=== PATIENT | male | born 1985 | race African-American/Black ===

== ENCOUNTER 2020-09-01 03:33 | Emergency (ER) | payer OTHER ==
[2020-09-01 03:51] VITALS: RESP 18
--- NOTE | 2020-09-01 04:21 | ED ---
URI HPI - General Chief Complaint: Upper Respiratory Infection Stated Complaint: pt states he feels "sickly" Time Seen by Provider: 09/01/20 03:43 Source: patient, RN notes reviewed, old records reviewed Mode of arrival: ambulatory Limitations: no limitations - History of Present Illness Initial Comments: This is a 35-year-old male DF for evaluation. Patient feels short of breath weakness not feeling well. Occasional cough or congestion, and is overall not feeling well. Patient does admit to homelessness feels he may have coronavirus. MD Complaint: cough, sore throat -: days(s) Severity: mild Severity scale (1-10): 2 Quality: dull Consistency: constant Improves With: nothing Worsens With: nothing Context: other (none) Associated Symptoms: denies other symptoms Treatments Prior to Arrival: none - Related Data Previous Rx's Medication Instructions Recorded Albuterol Sulfate [Proair Hfa] 1 - 2 puff INHALATION Q4HR PRN #1 09/28/15 inhaler methylPREDNISolone [Medrol Dose 4 mg PO DIRECTED #1 pack 09/28/15 Pack] Allergies Allergy/AdvReac Type Severity Reaction Status Date / Time No Known Allergies Allergy Verified 09/03/20 00:59 Review of Systems ROS Statement: Those systems with pertinent positive or pertinent negative responses have been documented in the HPI. ROS Other: All systems not noted in ROS Statement are negative. Past Medical History Past Medical History: Asthma History of Any Multi-Drug Resistant Organisms: None Reported Past Surgical History: No Surgical Hx Reported Past Psychological History: Schizophrenia Smoking Status: Current every day smoker, Never smoker Past Alcohol Use History: Daily Past Drug Use History: Marijuana General Exam Limitations: no limitations General appearance: alert, in no apparent distress Head exam: Present: atraumatic, normocephalic, normal inspection Eye exam: Present: normal appearance, PERRL, EOMI. Absent: scleral icterus, conjunctival injection, periorbital swelling ENT exam: Present: normal exam, mucous membranes moist Neck exam: Present: normal inspection. Absent: tenderness, meningismus, lymphadenopathy Respiratory exam: Present: normal lung sounds bilaterally. Absent: respiratory distress, wheezes, rales, rhonchi, stridor Cardiovascular Exam: Present: regular rate, normal rhythm, normal heart sounds. Absent: systolic murmur, diastolic murmur, rubs, gallop, clicks GI/Abdominal exam: Present: soft, normal bowel sounds. Absent: distended, tenderness, guarding, rebound, rigid Extremities exam: Present: normal inspection, full ROM, normal capillary refill. Absent: tenderness, pedal edema, joint swelling, calf tenderness Back exam: Present: normal inspection Neurological exam: Present: alert, oriented X3, CN II-XII intact Psychiatric exam: Present: normal affect, normal mood Skin exam: Present: warm, dry, intact, normal color. Absent: rash Course Vital Signs 09/01/20 09/01/20 09/01/20 03:34 03:46 06:34 Temperature 99 F 98.5 F Pulse Rate 79 76 Respiratory 24 18 18 Rate Blood Pressure 143/85 140/82 O2 Sat by Pulse 99 98 Oximetry - Reevaluation(s) Reevaluation #1: Medical record is reviewed Patient feeling better here in the ER Patient explained results, questions here answered Patient feels good for discharge home does admit to needing a place to sleep secondary to homelessness Medical Decision Making - Medical Decision Making 35 male DF for evaluation of possible coronavirus. X-ray coronavirus testing are negative patient can be discharged home - Lab Data Lab Results 09/01/20 Range/Units 04:28 Coronavirus (PCR) Not Detected (Not Detectd) - Radiology Data Radiology results: report reviewed (Chest x-rays negative for acute disease), image reviewed Disposition Clinical Impression: Acute upper respiratory infection Disposition: HOME SELF-CARE Condition: Good Instructions (If sedation given, give patient instructions): Upper Respiratory Infection (ED) Is patient prescribed a controlled substance at d/c from ED?: No Referrals: None,Stated [Primary Care Provider] - 1-2 days
--- NOTE | 2020-09-01 05:13 | XR ---
EXAM: XR Chest, 1 View CLINICAL HISTORY: ITS.REASON XR Reason: cough TECHNIQUE: Frontal view of the chest. COMPARISON: 09/28/2015 FINDINGS: Lungs: No consolidation or mass. Pleural space: No acute findings Heart: No cardiomegaly. Bones/joints: No acute findings. IMPRESSION: No acute cardiopulmonary process.
[2020-09-01 06:36] VITALS: BP 140/82; PULSE 76; TEMP 98.5
== END 2020-09-01 06:34 | disposition home or self-care (01) ==
LOC: EC 03:33
DX: J06.9 Acute upper respiratory infection, unspecified (principal); J45.909 Unspecified asthma, uncomplicated; F17.200 Nicotine dependence, unspecified, uncomplicated; F12.90 Cannabis use, unspecified, uncomplicated; Z20.822 Contact with and (suspected) exposure to COVID-19
CPT/HCPCS: 71045; 87635; 99284

== ENCOUNTER 2020-09-03 00:48 | Emergency (ER) | payer OTHER ==
--- NOTE | 2020-09-03 01:24 | XR ---
EXAM: XR Left Knee, 3 Views CLINICAL HISTORY: ITS.REASON XR Reason: pain TECHNIQUE: Three views of the left knee. COMPARISON: No relevant prior studies available. FINDINGS: Bones/joints: Unremarkable. No acute fracture. No dislocation. Soft tissues: Unremarkable. IMPRESSION: Normal left knee x-rays.
--- NOTE | 2020-09-03 02:15 | ED ---
Lower Extremity Injury HPI - General Chief Complaint: Extremity Injury, Lower Stated Complaint: LT leg pain Time Seen by Provider: 09/03/20 01:10 Source: patient, RN notes reviewed, old records reviewed Mode of arrival: ambulatory Limitations: no limitations - History of Present Illness Initial Comments: This is a 35-year-old male who admittedly homeless, coming in for evaluation. Patient Serafino to a for nonspecific complaints. Patient states he just needs placing off a little bit. Is complaining of some knee pain but had no trauma or other injury. No medical history takes no medications MD Complaint: knee injury (Knee pain no injury) -: hour(s) Type of Injury: unknown Place: street/outdoors Severity: mild Severity scale (1-10): 2 Improves With: nothing Worsens With: weight bearing Context: other Other Symptoms: other (none) Associated Symptoms: able to partially bear weight, ambulatory - Related Data Previous Rx's Medication Instructions Recorded Albuterol Sulfate [Proair Hfa] 1 - 2 puff INHALATION Q4HR PRN #1 09/28/15 inhaler methylPREDNISolone [Medrol Dose 4 mg PO DIRECTED #1 pack 09/28/15 Pack] Allergies Allergy/AdvReac Type Severity Reaction Status Date / Time No Known Allergies Allergy Verified 09/03/20 00:59 Review of Systems ROS Statement: Those systems with pertinent positive or pertinent negative responses have been documented in the HPI. ROS Other: All systems not noted in ROS Statement are negative. Past Medical History Past Medical History: Asthma History of Any Multi-Drug Resistant Organisms: None Reported Past Surgical History: No Surgical Hx Reported Past Psychological History: Schizophrenia Smoking Status: Current every day smoker, Never smoker Past Alcohol Use History: Daily Past Drug Use History: Marijuana General Exam Limitations: no limitations General appearance: alert, in no apparent distress Head exam: Present: atraumatic, normocephalic, normal inspection Eye exam: Present: normal appearance, PERRL, EOMI. Absent: scleral icterus, conjunctival injection, periorbital swelling ENT exam: Present: normal exam, mucous membranes moist Neck exam: Present: normal inspection. Absent: tenderness, meningismus, lymphadenopathy Respiratory exam: Present: normal lung sounds bilaterally. Absent: respiratory distress, wheezes, rales, rhonchi, stridor Cardiovascular Exam: Present: regular rate, normal rhythm, normal heart sounds. Absent: systolic murmur, diastolic murmur, rubs, gallop, clicks GI/Abdominal exam: Present: soft, normal bowel sounds. Absent: distended, tenderness, guarding, rebound, rigid Extremities exam: Present: normal inspection, full ROM, normal capillary refill. Absent: tenderness, pedal edema, joint swelling, calf tenderness Back exam: Present: normal inspection Neurological exam: Present: alert, oriented X3, CN II-XII intact Psychiatric exam: Present: normal affect, normal mood Skin exam: Present: warm, dry, intact, normal color. Absent: rash Course Vital Signs 09/03/20 00:55 Temperature 98 F Pulse Rate 94 Respiratory 18 Rate Blood Pressure 108/71 O2 Sat by Pulse 96 Oximetry - Reevaluation(s) Reevaluation #1: 09/03/20 02:44 Medical record is reviewed Reevaluation #2: 09/03/20 02:44 Patient informed results and questions answered Medical Decision Making - Medical Decision Making Refer male DEL with nonspecific pain. Nonspecific symptoms admittedly homeless. Patient can be discharged home - Radiology Data Radiology results: report reviewed (X-ray knee negative for acute disease), image reviewed Disposition Clinical Impression: Left knee pain, Homelessness Disposition: HOME SELF-CARE Condition: Good Instructions (If sedation given, give patient instructions): Knee Pain (ED) Is patient prescribed a controlled substance at d/c from ED?: No Referrals: None,Stated [Primary Care Provider] - 1-2 days
[2020-09-03 03:44] VITALS: BP 138/76; PULSE 72; RESP 16; TEMP 98.3
== END 2020-09-03 03:43 | disposition home or self-care (01) ==
LOC: EC 00:48
DX: M25.562 Pain in left knee (principal); J45.909 Unspecified asthma, uncomplicated; F17.200 Nicotine dependence, unspecified, uncomplicated; F12.90 Cannabis use, unspecified, uncomplicated; Z59.0 Homelessness
CPT/HCPCS: 99283

== ENCOUNTER 2021-04-19 23:43 | Emergency (ER) | payer OTHER ==
[2021-04-19 23:48] VITALS: BP 94/48; PULSE 66; RESP 20; TEMP 98
[2021-04-20 00:32] LABS: Basophils % (A) 1 %; Eosinophils # (A) 0.1 k/uL (0-0.7); Eosinophils % (A) 3 %; HCT 38.8 % (39.0-53.0); HGB 12.6 gm/dL (13.0-17.5); Lymphocytes # (A) 1.4 k/uL (1.0-4.8); Lymphocytes % (A) 46 %; MCH 30.9 pg (25.0-35.0); MCHC 32.6 g/dL (31.0-37.0); MCV 94.7 fL (80.0-100.0); Mean Platelet Volume 7.5; Monocytes # (A) 0.2 k/uL (0-1.0); Monocytes % (A) 7 %; Neutrophils # (A) 1.3 k/uL (1.3-7.7); Neutrophils % (A) 42 %; Platelet Count 208 k/uL (150-450); RDW 12.9 % (11.5-15.5)
--- NOTE | 2021-04-20 00:34 | XR ---
EXAMINATION TYPE: XR pelvis AP view DATE OF EXAM: 04/20/2021 COMPARISON: NONE HISTORY: Fall. Pain TECHNIQUE: Single view FINDINGS: Pelvic ring is intact. Proximal femurs and hip joints are intact. Sacroiliac joints are int act. IMPRESSION: Negative exam. No fracture.
--- NOTE | 2021-04-20 00:35 | XR ---
EXAMINATION TYPE: XR chest 2V DATE OF EXAM: 04/20/2021 COMPARISON: 09/01/2020 HISTORY: Fall. Pain TECHNIQUE: 2 views FINDINGS: Heart and mediastinum are normal. Lungs are clear. Diaphragm is normal. Bony thorax is inta ct. IMPRESSION: Normal chest. No change.
[2021-04-20 00:39] LABS: ALT 12 U/L (4-49); AST 22 U/L (17-59); African American GFR (CKD) >90 (>60 ml/min/1.73 sqM); Alcohol <10 mg/dL; Alkaline Phosphatase 84 U/L (38-126); Anion Gap 7 mmol/L; Blood Urea Nitrogen 19 mg/dL (9-20); Calcium 9.3 mg/dL (8.4-10.2); Carbon Dioxide 24 mmol/L (22-30); Chloride 105 mmol/L (98-107); Glucose 93 mg/dL (74-99); Non-African American GFR(CKD) >90 (>60 ml/min/1.73 sqM); Potassium 4.1 mmol/L (3.5-5.1); Sodium 136 mmol/L (137-145); Total Bilirubin 0.2 mg/dL (0.2-1.3); Total Protein 6.4 g/dL (6.3-8.2)
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
== END 2021-04-20 01:45 | disposition home or self-care (01) ==
LOC: EC 23:43
DX: R07.9 Chest pain, unspecified (principal); J45.909 Unspecified asthma, uncomplicated; F17.200 Nicotine dependence, unspecified, uncomplicated; V13.4XXA Pedal cycle driver injured in collision with car, pick-up truck or van in traffic accident, initial encounter
CPT/HCPCS: 71046; 72170; 80053; 80320; 85025; 93005; 99284

== ENCOUNTER 2021-09-28 06:53 | Emergency (ER) | payer BC, OTHER ==
[2021-09-28 07:16] VITALS: BP 116/79; RESP 18; TEMP 98.5
[2021-09-28] MEDS ORDERED: IPRATROPIUM-ALBUTEROL 3 ML NEB INHALATION STA (07:48)
--- NOTE | 2021-09-28 07:54 | ED ---
General Adult HPI - General Chief complaint: Upper Respiratory Infection Stated complaint: ELVIRA Time Seen by Provider: 09/28/21 07:15 Source: patient, RN notes reviewed, old records reviewed Mode of arrival: ambulatory Limitations: no limitations - History of Present Illness Initial comments: This is a 36-year-old male who presents to the emergency department complaining that he's been having some shortness of breath. Patient states she has a history of having had asthma. Patient states she smokes. Patient states when he takes a deep breath he feels like he is wheezing. Patient denies any cough patient denies any congestion patient denies any fever chills. Patient denies being exposed to anybody that he knows has any illness. Patient denies any chest pain. Patient denies abdominal pain patient denies nausea vomiting diarrhea. - Related Data Previous Rx's Medication Instructions Recorded Albuterol Inhaler [Ventolin Hfa 2 puff INHALATION RT-QID #18 gm 09/28/21 Inhaler] predniSONE [Deltasone] 40 mg PO DAILY #8 tab 09/28/21 Allergies Allergy/AdvReac Type Severity Reaction Status Date / Time No Known Allergies Allergy Verified 09/28/21 08:02 Review of Systems ROS Statement: Those systems with pertinent positive or pertinent negative responses have been documented in the HPI. ROS Other: All systems not noted in ROS Statement are negative. Past Medical History Past Medical History: Asthma History of Any Multi-Drug Resistant Organisms: None Reported Past Surgical History: No Surgical Hx Reported Past Psychological History: No Psychological Hx Reported, Schizophrenia Smoking Status: Current every day smoker Past Alcohol Use History: Occasional Past Drug Use History: Marijuana General Exam - General Exam Comments Initial Comments: GENERAL: Patient is well-developed and well-nourished. Patient is nontoxic and well- hydrated and is in no acute distress. ENT: Neck is soft and supple. No significant lymphadenopathy is noted. Oropharynx is clear. Moist mucous membranes. Neck has full range of motion without eliciting any pain. EYES: The sclera were anicteric and conjunctiva were pink and moist. Extraocular movements were intact and pupils were equal round and reactive to light. Eyelids were unremarkable. PULMONARY: Unlabored respirations. Good breath sounds bilaterally. Patient has expiratory wheezing bilaterally CARDIOVASCULAR: There is a regular rate and rhythm without any murmurs gallops or rubs. ABDOMEN: Soft and nontender with normal bowel sounds. SKIN: Skin is clear with no lesions or rashes and otherwise unremarkable. NEUROLOGIC: Patient is alert and oriented x3. Cranial nerves II through XII are grossly intact. Motor and sensory are also intact. Normal speech, volume and content. Symmetrical smile. MUSCULOSKELETAL: Normal extremities with adequate strength and full range of motion. No lower extremity swelling or edema. No calf tenderness. LYMPHATICS: No significant lymphadenopathy is noted PSYCHIATRIC: Normal psychiatric evaluation. Limitations: no limitations Course Vital Signs 09/28/21 09/28/21 09/28/21 07:12 07:37 08:05 Temperature 98.5 F Pulse Rate 66 68 Respiratory 18 18 Rate Blood Pressure 116/79 O2 Sat by Pulse 99 Oximetry 09/28/21 08:15 Temperature Pulse Rate 68 Respiratory Rate Blood Pressure O2 Sat by Pulse Oximetry Medical Decision Making - Medical Decision Making chest shows no acute abnormalities. Patient received a breathing treatment emergency Department felt considerably better. Disposition Clinical Impression: Bronchospasm Disposition: HOME SELF-CARE Condition: Good Instructions (If sedation given, give patient instructions): Bronchospasm (ED) Prescriptions: predniSONE [Deltasone] 40 mg PO DAILY #8 tab Albuterol Inhaler [Ventolin Hfa Inhaler] 2 puff INHALATION RT-QID #18 gm Is patient prescribed a controlled substance at d/c from ED?: No Referrals: None,Stated [Primary Care Provider] - 1-2 days
[2021-09-28 08:15] VITALS: PULSE 68
--- NOTE | 2021-09-28 09:11 | XR ---
EXAMINATION TYPE: XR chest 2V DATE OF EXAM: 09/28/2021 COMPARISON: Chest x-ray 04/20/2021 HISTORY: Difficulty breathing, dyspnea TECHNIQUE: Frontal and lateral views of the chest are obtained. FINDINGS: There is no focal air space opacity, pleural effusion, or pneumothorax seen. The cardiac silhouette size is within normal limits. Mild subglottic tracheal narrowing is stable compared to bruna or exam, likely normal variant. The osseous structures are stable. IMPRESSION: No acute cardiopulmonary process.
== END 2021-09-28 11:21 | disposition home or self-care (01) ==
LOC: EC 06:53
DX: J98.01 Acute bronchospasm (principal); F17.200 Nicotine dependence, unspecified, uncomplicated; F12.90 Cannabis use, unspecified, uncomplicated
CPT/HCPCS: 71046; 94640; 99284

== ENCOUNTER 2021-11-12 11:01 | Emergency (ER) | payer BC ==
[2021-11-12 11:08] VITALS: TEMP 98.1
[2021-11-12] MEDS ORDERED: IPRATROPIUM-ALBUTEROL 3 ML NEB INHALATION STA (13:05)
--- NOTE | 2021-11-12 13:23 | XR ---
EXAMINATION TYPE: XR chest 2V DATE OF EXAM: 11/12/2021 COMPARISON: 09/28/2021 INDICATION: Short of breath TECHNIQUE: Frontal and lateral views of the chest are obtained. FINDINGS: The heart size is normal. The pulmonary vasculature is normal. The lungs are clear. IMPRESSION: 1. No acute pulmonary process.
[2021-11-12 13:28] VITALS: RESP 18
--- NOTE | 2021-11-12 13:32 | ED ---
General Adult HPI - General Chief complaint: Recheck/Abnormal Lab/Rx Stated complaint: ELVIRA Time Seen by Provider: 11/12/21 12:41 Source: patient, RN notes reviewed Mode of arrival: ambulatory Limitations: no limitations - History of Present Illness Initial comments: 36-year-old male presents emergency Department chief complaint of asthma issues. Patient states that he is not out of his inhalers his been having intermittent shortness of breath especially wakes up in the morning. He states the weather has been affecting his asthma. Denies any fevers chills or productive cough. He states he has noticed some wheezing and states that his inhaler is out of any medications. No GI symptoms no sore throat and nasal congestion. - Related Data Previous Rx's Medication Instructions Recorded Albuterol Inhaler [Ventolin Hfa 2 puff INHALATION RT-QID #18 gm 09/28/21 Inhaler] predniSONE [Deltasone] 40 mg PO DAILY #8 tab 09/28/21 Albuterol Sulfate [Proair Hfa] 1 - 2 puff INHALATION Q4HR PRN 11/12/21 #8.5 gm predniSONE 50 mg PO DAILY #5 tab 11/12/21 Allergies Allergy/AdvReac Type Severity Reaction Status Date / Time No Known Allergies Allergy Verified 11/12/21 11:07 Review of Systems ROS Statement: Those systems with pertinent positive or pertinent negative responses have been documented in the HPI. ROS Other: All systems not noted in ROS Statement are negative. Past Medical History Past Medical History: Asthma History of Any Multi-Drug Resistant Organisms: None Reported Past Surgical History: No Surgical Hx Reported Past Psychological History: No Psychological Hx Reported, Schizophrenia Smoking Status: Current every day smoker Past Alcohol Use History: Occasional Past Drug Use History: Marijuana General Exam Limitations: no limitations General appearance: alert, in no apparent distress Head exam: Present: atraumatic, normocephalic, normal inspection Eye exam: Present: normal appearance, PERRL, EOMI. Absent: scleral icterus, conjunctival injection, periorbital swelling ENT exam: Present: normal exam, normal oropharynx, mucous membranes moist Neck exam: Present: normal inspection. Absent: tenderness, meningismus, lymphadenopathy Respiratory exam: Present: wheezes, decreased breath sounds. Absent: normal lung sounds bilaterally, respiratory distress, rales, rhonchi, stridor Cardiovascular Exam: Present: regular rate, normal rhythm, normal heart sounds. Absent: systolic murmur, diastolic murmur, rubs, gallop, clicks Course Vital Signs 11/12/21 11/12/21 11:02 13:25 Temperature 98.1 F Pulse Rate 97 88 Respiratory 20 18 Rate Blood Pressure 101/64 O2 Sat by Pulse 97 Oximetry Medical Decision Making - Medical Decision Making X-rays unremarkable. Patient we given DuoNeb treatment treatment, refill of his inhaler along with core steroids for asthma exacerbation. Disposition Clinical Impression: Encounter for medication refill, Asthma, Asthma exacerbation Disposition: HOME SELF-CARE Condition: Stable Instructions (If sedation given, give patient instructions): Asthma (ED) Additional Instructions: Please return to the Emergency Department if symptoms worsen or any other concerns. Prescriptions: predniSONE 50 mg PO DAILY #5 tab Albuterol Sulfate [Proair Hfa] 1 - 2 puff INHALATION Q4HR PRN #8.5 gm PRN Reason: difficulty in breathing Is patient prescribed a controlled substance at d/c from ED?: No Referrals: None,Stated [Primary Care Provider] - 1-2 days Time of Disposition: 13:31
[2021-11-12 14:19] VITALS: BP 124/80; PULSE 84
== END 2021-11-12 14:19 | disposition home or self-care (01) ==
LOC: EC 11:01
DX: J45.901 Unspecified asthma with (acute) exacerbation (principal); F17.200 Nicotine dependence, unspecified, uncomplicated; Z76.0 Encounter for issue of repeat prescription
CPT/HCPCS: 71046; 94640; 99284

== ENCOUNTER 2022-04-14 00:15 | Emergency (ER) | payer BC ==
[2022-04-14 00:51] VITALS: PULSE 87
--- NOTE | 2022-04-14 01:34 | XR ---
EXAMINATION TYPE: XR chest 2V DATE OF EXAM: 04/14/2022 COMPARISON: 11/12/2021 HISTORY: Cough TECHNIQUE: FINDINGS: Heart and mediastinum are normal. Lungs are clear. Diaphragm is normal. Bony thorax appears normal. IMPRESSION: Normal chest. No change.
--- NOTE | 2022-04-14 01:38 | ED ---
URI HPI - General Chief Complaint: Upper Respiratory Infection Stated Complaint: shortness of breath Time Seen by Provider: 04/14/22 01:25 Source: patient, RN notes reviewed Mode of arrival: ambulatory - History of Present Illness Initial Comments: This is a pleasant 37-year-old male presents in respiratory complaining of body aches, cough, some difficulty breathing, runny nose for the past 2 days. Patient is a nonsmoker. 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 Patient may have had a low-grade fever. Patient states she had some shaking chills. Cough is nonproductive. No headache, no changes in vision or hearing, no sore throat or difficulty with speech, no neck pain, no chest pain or shortness of breath, no abdominal pain, no nausea or vomiting, no changes in urination or bowel movements, no numbness or tingling, no extremity pain, no skin rashes or lesions. Past medical, surgical, social, and family history reviewed. MD Complaint: rhinorrhea, nasal congestion - Related Data Previous Rx's Medication Instructions Recorded Albuterol Inhaler [Ventolin Hfa 2 puff INHALATION RT-QID #18 gm 09/28/21 Inhaler] predniSONE [Deltasone] 40 mg PO DAILY #8 tab 09/28/21 Albuterol Sulfate [Proair Hfa] 1 - 2 puff INHALATION Q4HR PRN 11/12/21 #8.5 gm predniSONE 50 mg PO DAILY #5 tab 11/12/21 Acetaminophen Tab [Tylenol Tab] 500 mg PO Q6H PRN #24 tablet 04/14/22 Ibuprofen [Motrin Ib] 400 mg PO Q8H PRN #30 tab 04/14/22 Allergies Allergy/AdvReac Type Severity Reaction Status Date / Time No Known Allergies Allergy Verified 04/14/22 00:51 Review of Systems ROS Statement: Those systems with pertinent positive or pertinent negative responses have been documented in the HPI. ROS Other: All systems not noted in ROS Statement are negative. Past Medical History Past Medical History: Asthma History of Any Multi-Drug Resistant Organisms: None Reported Past Surgical History: No Surgical Hx Reported Past Psychological History: No Psychological Hx Reported, Schizophrenia Smoking Status: Current every day smoker Past Alcohol Use History: Occasional Past Drug Use History: Marijuana General Exam - General Exam Comments Initial Comments: Nontoxic appearing male in no significant distress. The refill less than 2 seconds. No mottling General appearance: alert, in no apparent distress Head exam: Present: atraumatic, normocephalic, normal inspection Eye exam: Present: normal appearance, PERRL, EOMI. Absent: scleral icterus, conjunctival injection, periorbital swelling ENT exam: Present: normal exam, normal oropharynx, mucous membranes dry, mucous membranes moist, TM's normal bilaterally, normal external ear exam Neck exam: Present: normal inspection, full ROM. Absent: tenderness, meningismus, lymphadenopathy Respiratory exam: Present: normal lung sounds bilaterally. Absent: respiratory distress, wheezes, rales, rhonchi, stridor Cardiovascular Exam: Present: regular rate, normal rhythm, normal heart sounds. Absent: systolic murmur, diastolic murmur, rubs, gallop, clicks GI/Abdominal exam: Present: soft, normal bowel sounds. Absent: distended, ten derness, guarding, rebound, rigid Extremities exam: Present: normal inspection, full ROM, normal capillary refill. Absent: tenderness, pedal edema, joint swelling, calf tenderness Back exam: Present: normal inspection Neurological exam: Present: alert, oriented X3, CN II-XII intact Psychiatric exam: Present: normal affect, normal mood Skin exam: Present: warm, dry, intact, normal color. Absent: rash Course Vital Signs 04/14/22 00:44 Temperature 99.7 F H Pulse Rate 87 Respiratory 19 Rate Blood Pressure 131/67 O2 Sat by Pulse 97 Oximetry Medical Decision Making - Medical Decision Making Patient septostomy most consistent with viral syndrome. We will assess for COVID-19, influenza. Does not appear to be consistent with bacterial etiology. Patient's lungs are clear. No evidence of purulent sinus drainage. Patient in no respiratory distress. Influenza testing was positive for influenza A. Patient educated on disease course and etiology. Tamiflu was considered, however patient is outside the 48-hour window. Deferred for this reason. Patient was told to return to the ER for any signs or symptoms worsen. Told to return immediately if any other problems arise. All questions answered. Treatment plan discussed. Patient in agreement Every effort has been made to ensure accuracy of this dictation. However, due to the limitations of electronic medical records and dictation devices, errors in charting still occur. The case was discussed in detail with ED attending physician. Presentation, findings, treatment plan discussed in detail. 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 Radiology report was pending at the time of my interpretation. Disposition Clinical Impression: Influenza A Disposition: HOME SELF-CARE Condition: Good Instructions (If sedation given, give patient instructions): H1N1 Influenza (ED) Additional Instructions: Alternate acetaminophen and ibuprofen every 3-4 hours for fever control. Follow- up with your regular physician as directed. Return to the ER immediately if any symptoms worsen, new symptoms arise, or any other problems develop. Is patient prescribed a controlled substance at d/c from ED?: No Referrals: None,Stated [Primary Care Provider] - 1-2 days Time of Disposition: 03:18
[2022-04-14] MEDS ORDERED: ACETAMINOPHEN TAB 500 MG TAB PO STA (03:04)
[2022-04-14] MEDS ORDERED: IPRATROPIUM-ALBUTEROL 3 ML NEB INHALATION STA (03:49)
[2022-04-14 04:40] VITALS: BP 128/70; RESP 17; TEMP 98.9
== END 2022-04-14 04:40 | disposition home or self-care (01) ==
LOC: EC 00:15
DX: J10.1 Influenza due to other identified influenza virus with other respiratory manifestations (principal); J45.909 Unspecified asthma, uncomplicated; F17.200 Nicotine dependence, unspecified, uncomplicated; F12.90 Cannabis use, unspecified, uncomplicated; Z20.822 Contact with and (suspected) exposure to COVID-19
CPT/HCPCS: 71046; 87502; 87635; 94640; 99285

== ENCOUNTER 2022-06-08 05:09 | Emergency (ER) | payer BC ==
[2022-06-08] MEDS ORDERED: IPRATROPIUM-ALBUTEROL 3 ML NEB INHALATION STA (06:09)
--- NOTE | 2022-06-08 06:15 | ED ---
SOB HPI - General Chief Complaint: Shortness of Breath Stated Complaint: SOB Time Seen by Provider: 06/08/22 06:05 Source: patient, RN notes reviewed Mode of arrival: ambulatory Limitations: no limitations - History of Present Illness Initial Comments: 37-year-old male presents emergency Department chief complaint shortness breath. Patient states started while he was at work tonight. Patient states does have a history of asthma that she's been wheezing does not have current inhaler. Patient states he has mild congestion. Patient denies any reported fever no reported sick contacts. Patient states is just this feels tight in his lungs. Denies any chest pain per se. Denies any nausea vomiting denies any other complaints. - Related Data Previous Rx's Medication Instructions Recorded Albuterol Inhaler [Ventolin Hfa 2 puff INHALATION RT-QID #18 gm 09/28/21 Inhaler] predniSONE [Deltasone] 40 mg PO DAILY #8 tab 09/28/21 Albuterol Sulfate [Proair Hfa] 1 - 2 puff INHALATION Q4HR PRN 11/12/21 #8.5 gm predniSONE 50 mg PO DAILY #5 tab 11/12/21 Acetaminophen Tab [Tylenol Tab] 500 mg PO Q6H PRN #24 tablet 04/14/22 Albuterol Inhaler [Ventolin Hfa 2 puff INHALATION Q4HR PRN #1 each 04/14/22 Inhaler] Ibuprofen [Motrin Ib] 400 mg PO Q8H PRN #30 tab 04/14/22 Albuterol Inhaler [Ventolin Hfa 1 - 2 puff INHALATION Q6H PRN #1 06/08/22 Inhaler] each Azithromycin [Zithromax Z Pack] 0 tab PO DIRECTED #6 tab 06/08/22 predniSONE 50 mg PO DAILY #5 tab 06/08/22 Allergies Allergy/AdvReac Type Severity Reaction Status Date / Time No Known Allergies Allergy Verified 06/08/22 05:22 Review of Systems ROS Statement: Those systems with pertinent positive or pertinent negative responses have been documented in the HPI. ROS Other: All systems not noted in ROS Statement are negative. Past Medical History Past Medical History: Asthma History of Any Multi-Drug Resistant Organisms: None Reported Past Surgical History: No Surgical Hx Reported Past Psychological History: No Psychological Hx Reported, Schizophrenia Smoking Status: Current every day smoker Past Alcohol Use History: Occasional Past Drug Use History: Marijuana General Exam Limitations: no limitations General appearance: alert, in no apparent distress Head exam: Present: atraumatic, normocephalic, normal inspection Eye exam: Present: normal appearance, PERRL, EOMI. Absent: scleral icterus, conjunctival injection, periorbital swelling ENT exam: Present: normal exam, normal oropharynx, mucous membranes moist Neck exam: Present: normal inspection, full ROM. Absent: tenderness, meningismus, lymphadenopathy Respiratory exam: Present: wheezes. Absent: normal lung sounds bilaterally, respiratory distress, rales, rhonchi, stridor Cardiovascular Exam: Present: regular rate, normal rhythm, normal heart sounds. Absent: systolic murmur, diastolic murmur, rubs, gallop, clicks Neurological exam: Present: alert Course Vital Signs 06/08/22 06/08/22 06/08/22 05:18 07:02 07:19 Temperature 98.1 F Pulse Rate 93 94 96 Respiratory 16 Rate Blood Pressure 113/68 O2 Sat by Pulse 96 Oximetry 06/08/22 07:36 Temperature Pulse Rate Respiratory 18 Rate Blood Pressure O2 Sat by Pulse Oximetry Medical Decision Making - Medical Decision Making Was pt. sent in by a medical professional or institution (, PA, DANCING TEACHER, urgent care, hospital, or group home...) When possible be specific @ -No Did you speak to anyone other than the patient for history (EMS, parent, family, police, friend...)? What history was obtained from this source @ -No Did you review nursing and triage notes (agree or disagree)? Why? @ -I reviewed and agree with nursing and triage notes Were old charts reviewed (outside hosp., previous admission, EMS record, old EKG, old radiological studies, urgent care reports/EKG's, group home records)? Report findings @ -No old charts were reviewed Differential Diagnosis (chest pain, altered mental status, abdominal pain women, abdominal pain men, vaginal bleeding, weakness, fever, dyspnea, syncope, headache, dizziness, GI bleed, back pain, seizure, CVA, palpatations, mental health)? @ -Asthma exacerbation, pneumonia, bronchitis, URI, influenza, COVID-19, this is not all-inclusive. EKG interpreted by me (3pts min.). @ -None X-rays interpreted by me (1pt min.). @ -Chest x-rays unremarkable CT interpreted by me (1pt min.). @ -None done U/S interpreted by me (1pt. min.). @ -None done What testing was considered but not performed or refused? (CT, X-rays, U/S, labs)? Why? @ -None What meds were considered but not given or refused? Why? @ -None Did you discuss the management of the patient with other professionals (professionals i.e. DrEric, PA, DANCING TEACHER, lab, RT, psych nurse, social service coordinator, fish seiner, teacher, hearing officer, case briefer)? Give summary @ -No Was smoking cessation discussed for >3mins.? @ -No Was critical care preformed (if so, how long)? @ -No Were there social determinants of health that impacted care today? How? (Homelessness, low income, unemployed, alcoholism, drug addiction, transportation, low edu. Level, literacy, decrease access to med. care, skilled nursing, rehab)? @ -No Was there de-escalation of care discussed even if they declined (Discuss DNR or withdrawal of care, Hospice)? DNR status @ -No What co-morbidities impacted this encounter? (DM, HTN, Smoking, COPD, CAD, Cancer, CVA, ARF, Chemo, Hep., AIDS, mental health diagnosis, sleep apnea, morbid obesity)? @ -Asthma Was patient admitted / discharged? Hospital course, mention meds given and route, prescriptions, significant lab abnormalities, going to OR and other perti nent info. @ -Discharge patient was given DuoNeb treatment, negative cepheid and chest x- rays unremarkable. Patient is improved after DuoNeb treatment was given Solu- Medrol discharged on prednisone, pro-air inhaler. Undiagnosed new problem with uncertain prognosis? @ -No Drug Therapy requiring intensive monitoring for toxicity (Heparin, Nitro, Insulin, Cardizem)? @ -No Were any procedures done? @ -No Diagnosis/symptom? @ -Asthma exacerbation Acute, or Chronic, or Acute on Chronic? @ -Acute on chronic Uncomplicated (without systemic symptoms) or Complicated (systemic symptoms)? @ -Complicated Side effects of treatment? @ -No Exacerbation, Progression, or Severe Exacerbation? @ -Exacerbation Poses a threat to life or bodily function? How? (Chest pain, [place], [place], pneumonia, PE, COPD, DKA, ARF, appy, cholecystitis, CVA, Diverticulitis, Homicidal, Laxmi cidal, threat to staff... and all critical care pts) @ -No Diagnosis/symptom? @ -Asthmatic bronchitis Acute, or Chronic, or Acute on Chronic? @ -Acute Uncomplicated (without systemic symptoms) or Complicated (systemic symptoms)? @ -Uncomplicated Side effects of treatment? @ -none Exacerbation, Progression, or Severe Exacerbation] @ -no Poses a threat to life or bodily function? @ -no - Lab Data Lab Results 06/08/22 Range/Units 06:18 Influenza Type A (PCR) Not Detected (Not Detectd) Influenza Type B (PCR) Not Detected (Not Detectd) RSV (PCR) Not Detected (Not Detectd) SARS-CoV-2 (PCR) Not Detected (Not Detectd) Disposition Clinical Impression: Asthma exacerbation, Asthmatic bronchitis Disposition: HOME SELF-CARE Condition: Stable Instructions (If sedation given, give patient instructions): Asthma (ED) Additional Instructions: Please return to the Emergency Department if symptoms worsen or any other concerns. Prescriptions: predniSONE 50 mg PO DAILY #5 tab Albuterol Inhaler [Ventolin Hfa Inhaler] 1 - 2 puff INHALATION Q6H PRN #1 each PRN Reason: Shortness Of Breath Azithromycin [Zithromax Z Pack] 0 tab PO DIRECTED #6 tab Is patient prescribed a controlled substance at d/c from ED?: No Referrals: None,Stated [Primary Care Provider] - 1-2 days Time of Disposition: 07:44
[2022-06-08] MEDS ORDERED: methylPREDNISolone SOD SUCCI 125 MG/2 ML VIAL IV STA (07:38)
[2022-06-08 07:41] VITALS: BP 117/72; PULSE 75; RESP 20
--- NOTE | 2022-06-08 07:45 | XR ---
EXAMINATION TYPE: XR chest 2V DATE OF EXAM: 06/08/2022 6:34 AM COMPARISON: Chest radiographs from 04/14/2022 TECHNIQUE: XR chest 2V Frontal and lateral views of the chest. CLINICAL INDICATION:Male, 37 years old with history of angelina; FINDINGS: Lungs/Pleura: There is no evidence of pleural effusion, focal consolidation, or pneumothorax. Pulmonary vascularity: Unremarkable. Heart/mediastinum: Cardiomediastinal silhouette is unremarkable. Musculoskeletal: No acute osseous pathology. IMPRESSION: No acute cardiopulmonary disease/process.
[2022-06-08] MEDS ORDERED: methylPREDNISolone SOD SUCCI 125 MG/2 ML VIAL IM ONE (07:52)
[2022-06-08 07:58] VITALS: TEMP 98.2
== END 2022-06-08 07:58 | disposition home or self-care (01) ==
LOC: EC 05:09
DX: J45.901 Unspecified asthma with (acute) exacerbation (principal); F17.200 Nicotine dependence, unspecified, uncomplicated; F12.90 Cannabis use, unspecified, uncomplicated; Z79.899 Other long term (current) drug therapy; Z20.822 Contact with and (suspected) exposure to COVID-19
CPT/HCPCS: 94640; 87636; 71046; 99285; 96372; J2930

== ENCOUNTER 2022-07-30 05:06 | Emergency (ER) | payer BC ==
[2022-07-30 05:14] VITALS: BP 116/66; PULSE 78; RESP 16; TEMP 97.7
[2022-07-30] MEDS ORDERED: predniSONE 20 MG TAB PO STA (05:24)
[2022-07-30] MEDS ORDERED: ALBUTEROL HFA INHALER INHALATION STA (05:24)
--- NOTE | 2022-07-30 05:33 | ED ---
General Adult HPI - General Chief complaint: Shortness of Breath Stated complaint: SOB asthma Time Seen by Provider: 07/30/22 05:16 Source: patient, RN notes reviewed, old records reviewed Mode of arrival: ambulatory Limitations: no limitations - History of Present Illness Initial comments: Patient is a 37-year-old male who presents emergency Department complaining of an asthma flare. 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 Patient is complaining of increased wheezing, as well as a mild nonproductive cough and runny nose. States it has been ongoing for the last few days since he started the cleaning process. Has a history of asthma. Is out of his albuterol inhaler at home. Needs to follow-up with her primary care doctor. Denies any fevers, chills, sick contacts. Denies any chest pain, shortness of breath, abdominal pain, nausea, vomiting. States he has not been admitted previously for his asthma. Presents for further evaluation at this time. - Related Data Previous Rx's Medication Instructions Recorded Albuterol Inhaler [Ventolin Hfa 2 puff INHALATION RT-QID #18 gm 09/28/21 Inhaler] predniSONE [Deltasone] 40 mg PO DAILY #8 tab 09/28/21 Albuterol Sulfate [Proair Hfa] 1 - 2 puff INHALATION Q4HR PRN 11/12/21 #8.5 gm predniSONE 50 mg PO DAILY #5 tab 11/12/21 Acetaminophen Tab [Tylenol Tab] 500 mg PO Q6H PRN #24 tablet 04/14/22 Albuterol Inhaler [Ventolin Hfa 2 puff INHALATION Q4HR PRN #1 each 04/14/22 Inhaler] Ibuprofen [Motrin Ib] 400 mg PO Q8H PRN #30 tab 04/14/22 Albuterol Inhaler [Ventolin Hfa 1 - 2 puff INHALATION Q6H PRN #1 06/08/22 Inhaler] each Azithromycin [Zithromax Z Pack] 0 tab PO DIRECTED #6 tab 06/08/22 predniSONE 50 mg PO DAILY #5 tab 06/08/22 Albuterol Sulfate [Proventil Hfa] 1 puff INHALATION Q6H PRN #1 each 07/30/22 predniSONE [Deltasone] 40 mg PO DAILY 5 Days #10 tab 07/30/22 Allergies Allergy/AdvReac Type Severity Reaction Status Date / Time No Known Allergies Allergy Verified 06/08/22 05:22 Review of Systems ROS Statement: Those systems with pertinent positive or pertinent negative responses have been documented in the HPI. Review of Systems: CONST: Denies fever EYES: Denies blurry vision ENT: Endorses nasal congestion C/V: Denies Chest pain RESP: Denies shortness of breath GI: Denies abdominal pain : Denies dysuria SKIN: Denies rash. MSK: Denies joint pain. NEURO: Denies headache ROS Other: All systems not noted in ROS Statement are negative. Past Medical History Past Medical History: Asthma History of Any Multi-Drug Resistant Organisms: None Reported Past Surgical History: No Surgical Hx Reported Past Psychological History: No Psychological Hx Reported, Schizophrenia Smoking Status: Current every day smoker Past Alcohol Use History: Occasional Past Drug Use History: Marijuana General Exam - General Exam Comments Initial Comments: General: Appears in no acute distress. HEAD: Normal with no signs of head trauma. EYES: EOMI ENT: Hearing grossly intact RESPIRATORY: No respiratory distress. Very mild bilateral end expiratory whee zing. No hypoxia. No increased work of breathing. C/V: Regular rate and rhythm. S1 and S2 auscultated, peripheral pulses 2+ and intact throughout ABD: Abd is nondistended EXT: no obvious deformity SKIN: No rashes or lesions observed on exposed skin. NEURO: Alert and oriented 4 Limitations: no limitations Course Vital Signs 07/30/22 05:09 Temperature 97.7 F Pulse Rate 78 Respiratory 16 Rate Blood Pressure 116/66 O2 Sat by Pulse 98 Oximetry Medical Decision Making - Medical Decision Making Was pt. sent in by a medical professional or institution (, PA, PAPER MILL SUPERINTENDENT, urgent care, hospital, or skilled nursing...) When possible be specific @ -No Did you speak to anyone other than the patient for history (EMS, parent, family, police, friend...)? What history was obtained from this source @ -No Did you review nursing and triage notes (agree or disagree)? Why? @ -I reviewed and agree with nursing and triage notes Were old charts reviewed (outside hosp., previous admission, EMS record, old EKG, old radiological studies, urgent care reports/EKG's, skilled nursing records)? Report findings @ -No old charts were reviewed Differential Diagnosis (chest pain, altered mental status, abdominal pain women, abdominal pain men, vaginal bleeding, weakness, fever, dyspnea, syncope, headache, dizziness, GI bleed, back pain, seizure, CVA, palpatations, mental health, musculoskeletal)? @ -Asthma exacerbation, pneumonia, bronchospasm. This list is not all inclusive. EKG interpreted by me (3pts min.). @ -None done X-rays interpreted by me (1pt min.). @ -Chest x-ray reveals no obvious acute cardiopulmonary process, infiltrate. CT interpreted by me (1pt min.). @ -None done U/S interpreted by me (1pt. min.). @ -None done What testing was considered but not performed or refused? (CT, X-rays, U/S, labs)? Why? @ -None What meds were considered but not given or refused? Why? @ -None Did you discuss the management of the patient with other professionals (professionals i.e. , PA, PAPER MILL SUPERINTENDENT, lab, RT, psych nurse, bilingual social worker, nuclear design engineer, teacher, life science technical officer, therapeutic case manager)? Give summary @ -No Was smoking cessation discussed for >3mins.? @ -No Was critical care preformed (if so, how long)? @ -No Were there social determinants of health that impacted care today? How? (Homelessness, low income, unemployed, alcoholism, drug addiction, transportation, low edu. Level, literacy, decrease access to med. care, usp, rehab)? @ -No Was there de-escalation of care discussed even if they declined (Discuss DNR or withdrawal of care, Hospice)? DNR status @ -No What co-morbidities impacted this encounter? (DM, HTN, Smoking, COPD, CAD, [place], CVA, ARF, Chemo, Hep., AIDS, mental health diagnosis, sleep apnea, morbid obesity)? @ -None Was patient admitted / discharged? Hospital course, mention meds given and route, prescriptions, significant lab abnormalities, going to OR and other pertinent info. @ -Based on the patient's presentation and physical exam, I'm concerned for mil d asthma exacerbation the patient. We will obtain a chest x-ray as well as treat him with oral prednisone as well as an albuterol inhaler. Vital signs within acceptable limits. No respiratory distress. He was in agreement this plan. X-ray unremarkable. Vital signs remained within except for limits. He'll be discharged home at this time. He was in agreement this plan. We discussed obtaining a PCP and he will contact his insurance company for list. I will provide the patient with a prescription for prednisone, albuterol inhaler. I instructed the patient to follow up with their PCP in the next 1-3 days. . I explained that the patient should return to the emergency department if they experience any worsening symptoms. Strict return precautions were discussed with the patient. The patient expressed understanding of these instructions. I answered all questions that the patient had. The patient was discharged home in good condition with their prescriptions and follow up information. Undiagnosed new problem with uncertain prognosis? @ -No Drug Therapy requiring intensive monitoring for toxicity (Heparin, Nitro, Insulin, Cardizem)? @ -No Were any procedures done? @ -No Diagnosis/symptom? @ -Mild asthma exacerbation Acute, or Chronic, or Acute on Chronic? @ -Acute Uncomplicated (without systemic symptoms) or Complicated (systemic symptoms)? @ -uncomplicated Side effects of treatment? @ -No Exacerbation, Progression, or Severe Exacerbation? @ -Exacerbation Poses a threat to life or bodily function? How? (Chest pain, [place], [place], pneumonia, PE, COPD, DKA, ARF, appy, cholecystitis, CVA, Diverticulitis, Homicidal, Suicidal, threat to staff... and all critical care pts) @ -No Disposition Clinical Impression: Asthma exacerbation Disposition: HOME SELF-CARE Condition: Good Instructions (If sedation given, give patient instructions): Asthma (ED) Prescriptions: predniSONE [Deltasone] 40 mg PO DAILY 5 Days #10 tab Albuterol Sulfate [Proventil Hfa] 1 puff INHALATION Q6H PRN #1 each PRN Reason: Wheezing Is patient prescribed a controlled substance at d/c from ED?: No Referrals: None,Stated [Primary Care Provider] - 1-2 days Time of Disposition: 06:05
--- NOTE | 2022-07-30 06:00 | XR ---
EXAMINATION TYPE: XR chest 2V DATE OF EXAM: 07/30/2022 COMPARISON: 06/08/2022 HISTORY: Wheezing TECHNIQUE: FINDINGS: Heart and mediastinum are normal. Lungs are clear. Diaphragm is normal. Bony thorax appears normal. IMPRESSION: Normal chest. No change.
== END 2022-07-30 06:07 | disposition home or self-care (01) ==
LOC: EC 05:06
DX: J45.901 Unspecified asthma with (acute) exacerbation (principal); F17.200 Nicotine dependence, unspecified, uncomplicated; F12.90 Cannabis use, unspecified, uncomplicated
CPT/HCPCS: 94640; 71046; 99284; J7512

== ENCOUNTER 2022-09-18 14:37 | Emergency (ER) | payer BC ==
[2022-09-18 15:00] VITALS: TEMP 97.7
[2022-09-18] MEDS ORDERED: ALBUTEROL NEBULIZED 2.5 MG/3 ML INHALATION STA (16:13)
[2022-09-18] MEDS ORDERED: methylPREDNISolone SOD SUCCI 125 MG/2 ML VIAL IM ONE (16:13)
--- NOTE | 2022-09-18 16:52 | XR ---
EXAMINATION TYPE: XR chest 2V DATE OF EXAM: 09/18/2022 COMPARISON: 07/30/2022 INDICATION: Short of breath TECHNIQUE: Frontal and lateral views of the chest are obtained. FINDINGS: The heart size is normal. The pulmonary vasculature is normal. The lungs are clear. There is good. Her present IMPRESSION: 1. No acute pulmonary process.
--- NOTE | 2022-09-18 17:34 | ED ---
SOB HPI - General Chief Complaint: Shortness of Breath Stated Complaint: SOB Time Seen by Provider: 09/18/22 16:05 Source: patient Mode of arrival: wheelchair Limitations: no limitations - History of Present Illness Initial Comments: Patient with 37-year-old male who presents to the emergency department for shortness of breath. Patient states he has had frequent asthma exacerbations over the past couple months. He has felt a little short of breath since yesterday with coughing fits. The cough is dry and nonproductive. He denies chest pain. No leg pain or swelling. He denies fever, chills, nausea, vomiting. Patient states he is out of his inhaler. He has never seen a fish and wildlife warden. He is a nonsmoker - Related Data Previous Rx's Medication Instructions Recorded Albuterol Inhaler [Ventolin Hfa 2 puff INHALATION RT-QID #18 gm 09/28/21 Inhaler] predniSONE [Deltasone] 40 mg PO DAILY #8 tab 09/28/21 Albuterol Sulfate [Proair Hfa] 1 - 2 puff INHALATION Q4HR PRN 11/12/21 #8.5 gm predniSONE 50 mg PO DAILY #5 tab 11/12/21 Acetaminophen Tab [Tylenol Tab] 500 mg PO Q6H PRN #24 tablet 04/14/22 Albuterol Inhaler [Ventolin Hfa 2 puff INHALATION Q4HR PRN #1 each 04/14/22 Inhaler] Ibuprofen [Motrin Ib] 400 mg PO Q8H PRN #30 tab 04/14/22 Albuterol Inhaler [Ventolin Hfa 1 - 2 puff INHALATION Q6H PRN #1 06/08/22 Inhaler] each Azithromycin [Zithromax Z Pack] 0 tab PO DIRECTED #6 tab 06/08/22 predniSONE 50 mg PO DAILY #5 tab 06/08/22 Albuterol Sulfate [Proventil Hfa] 1 puff INHALATION Q6H PRN #1 each 07/30/22 predniSONE [Deltasone] 40 mg PO DAILY 5 Days #10 tab 07/30/22 Albuterol Inhaler [Ventolin Hfa 2 puff INHALATION QID #8 gm 09/18/22 Inhaler] predniSONE 50 mg PO DAILY #5 tab 09/18/22 Allergies Allergy/AdvReac Type Severity Reaction Status Date / Time No Known Allergies Allergy Verified 06/08/22 05:22 Review of Systems ROS Statement: Those systems with pertinent positive or pertinent negative responses have been documented in the HPI. ROS Other: All systems not noted in ROS Statement are negative. Past Medical History Past Medical History: Asthma History of Any Multi-Drug Resistant Organisms: None Reported Past Surgical History: No Surgical Hx Reported Past Psychological History: No Psychological Hx Reported, Schizophrenia Smoking Status: Current every day smoker Past Alcohol Use History: Occasional Past Drug Use History: Marijuana General Exam Limitations: no limitations General appearance: alert, in no apparent distress Head exam: Present: atraumatic, normocephalic, normal inspection Eye exam: Present: normal appearance, PERRL, EOMI. Absent: scleral icterus, conjunctival injection, periorbital swelling Respiratory exam: Present: normal lung sounds bilaterally, wheezes (minimal throughout ). Absent: respiratory distress, rales, rhonchi, stridor, chest wall tenderness, accessory muscle use, decreased breath sounds, prolonged expiratory Cardiovascular Exam: Present: regular rate, normal rhythm, normal heart sounds. Absent: systolic murmur, diastolic murmur, rubs, gallop, clicks Extremities exam: Present: normal inspection, full ROM, normal capillary refill. Absent: pedal edema Neurological exam: Present: alert, oriented X3, CN II-XII intact Psychiatric exam: Present: normal affect, normal mood Skin exam: Present: warm, dry, intact, normal color. Absent: rash Course Vital Signs 09/18/22 09/18/22 09/18/22 14:59 16:07 16:30 Temperature 97.7 F Pulse Rate 87 Respiratory 18 18 18 Rate Blood Pressure 96/62 112/80 O2 Sat by Pulse 92 L 97 97 Oximetry 09/18/22 09/18/22 09/18/22 16:44 17:00 17:34 Temperature Pulse Rate 91 88 Respiratory 22 18 16 Rate Blood Pressure 112/80 112/80 O2 Sat by Pulse 93 L 97 Oximetry 09/18/22 09/18/22 17:40 17:57 Temperature Pulse Rate 84 69 Respiratory 18 18 Rate Blood Pressure 112/81 O2 Sat by Pulse 100 Oximetry Medical Decision Making - Medical Decision Making Was pt. sent in by a medical professional or institution (, PA, [facility], urgent care, hospital, or penitentiary...) When possible be specific @ -No Did you speak to anyone other than the patient for history (EMS, parent, family, police, friend...)? What history was obtained from this source @ -No Did you review nursing and triage notes (agree or disagree)? Why? @ -I reviewed and agree with nursing and triage notes Were old charts reviewed (outside hosp., previous admission, EMS record, old EKG, old radiological studies, urgent care reports/EKG's, penitentiary records)? Report findings @ -No old charts were reviewed Differential Diagnosis (chest pain, altered mental status, abdominal pain women, abdominal pain men, vaginal bleeding, weakness, fever, dyspnea, syncope, headache, dizziness, GI bleed, back pain, seizure, CVA, palpatations, mental health)? @ -Differential Dyspnea: Coronary syndrome, arrhythmia, tamponade, asthma, COPD, pulmonary embolism, pneumonia, pneumothorax, pulmonary effusion, anaphylaxis, diabetic ketoacidosis, flailed chest, pulmonary contusion, diaphragmatic rupture, anemia, neuromuscular, this is not meant to be an all-inclusive list. EKG interpreted by me (3pts min.). @ -As above X-rays interpreted by me (1pt min.). @ -Yes, chest xray negative for acute process CT interpreted by me (1pt min.). @ -None done U/S interpreted by me (1pt. min.). @ -None done What testing was considered but not performed or refused? (CT, X-rays, U/S, labs)? Why? @ -None What meds were considered but not given or refused? Why? @ -None Did you discuss the management of the patient with other professionals (professionals i.e. , PA, [facility], lab, RT, psych nurse, oncology social worker, unit secretary, teacher, nuclear officer, nurse outreach case manager)? Give summary @ -No Was smoking cessation discussed for >3mins.? @ -No Was critical care preformed (if so, how long)? @ -No Were there social determinants of health that impacted care today? How? (Homelessness, low income, unemployed, alcoholism, drug addiction, transportation, low edu. Level, literacy, decrease access to med. care, nursing home, rehab)? @ -No Was there de-escalation of care discussed even if they declined (Discuss DNR or withdrawal of care, Hospice)? DNR status @ -No What co-morbidities impacted this encounter? (DM, HTN, Smoking, COPD, CAD, Cancer, CVA, ARF, Chemo, Hep., AIDS, mental health diagnosis, sleep apnea, morbid obesity)? @ -None Was patient admitted / discharged? Hospital course, mention meds given and route, prescriptions, significant lab abnormalities, going to OR and other pertinent info. @ -Patient presenting with shortness of breath. He is resting comfortably in bed no evidence of respiratory distress. No hypoxia. Minimal wheezing throughout. Patient given Solu-Medrol and breathing treatment with improved symptoms and lung sounds. Discuss asthma in detail with patient. We discussed triggers and importance of establishing care with a fish and wildlife warden to hopefully decrease frequency of exacerbations. Patient is referred to fish and wildlife warden today. He does not have a nebulizer at home. He is discharged with albuterol inhaler and prednisone. Undiagnosed new problem with uncertain prognosis? @ -No Drug Therapy requiring intensive monitoring for toxicity (Heparin, Nitro, Insulin, Cardizem)? @ -No Were any procedures done? @ -No Diagnosis symptom? @ asthma exacerbation Acute, or Chronic, or Acute on Chronic? @ acute Uncomplicated (without systemic symptoms) or Complicated (systemic symptoms)? @ -Uncomplicated Side effects of treatment? @ -No Exacerbation, Progression, or Severe Exacerbation? @ -No Poses a threat to life or bodily function? How? (Chest pain, [place], [place], pneumonia, PE, COPD, DKA, ARF, appy, cholecystitis, CVA, Diverticulitis, Homicidal, Suicidal, threat to staff... and all critical care pts) @ -No Dr. Everett is my attending - Lab Data Lab Results 09/18/22 Range/Units 16:44 Influenza Type A (PCR) Not Detected (Not Detectd) Influenza Type B (PCR) Not Detected (Not Detectd) RSV (PCR) Not Detected (Not Detectd) SARS-CoV-2 (PCR) Not Detected (Not Detectd) Disposition Clinical Impression: Asthma exacerbation Disposition: HOME SELF-CARE Condition: Good Instructions (If sedation given, give patient instructions): Asthma (ED) Additional Instructions: Take medication as directed. Please follow-up with primary care provider and lung specialist in 1-2 days. Avoid asthma triggers. Return to the emergency department if you experience new, concerning, or worsening symptoms. Prescriptions: predniSONE 50 mg PO DAILY #5 tab Albuterol Inhaler [Ventolin Hfa Inhaler] 2 puff INHALATION QID #8 gm Is patient prescribed a controlled substance at d/c from ED?: No Referrals: None,Stated [Primary Care Provider] - 1-2 days Carley Jacob MD [STAFF PHYSICIAN] - 1-2 days Time of Disposition: 17:52
[2022-09-18 17:41] VITALS: RESP 18
[2022-09-18 18:02] VITALS: BP 112/81; PULSE 69
== END 2022-09-18 18:02 | disposition home or self-care (01) ==
LOC: EC 14:37
DX: J45.901 Unspecified asthma with (acute) exacerbation (principal); F17.200 Nicotine dependence, unspecified, uncomplicated; F12.90 Cannabis use, unspecified, uncomplicated; Z20.822 Contact with and (suspected) exposure to COVID-19
CPT/HCPCS: 94640; 87636; 71046; 99285; 96372; J2930

== ENCOUNTER 2022-09-27 20:39 | Emergency (ER) | payer BC ==
--- NOTE | 2022-09-27 20:42 | ED ---
General Adult HPI <Claudette Garcia - Last Filed: 09/27/22 20:40> - General Source: RN notes reviewed, old records reviewed <Miguel Angel Pedersen - Last Filed: 09/28/22 01:40> - General Stated complaint: Asthma Time Seen by Provider: 09/27/22 20:40 - History of Present Illness Initial comments: 37-year-old -Armenian male with past medical history presents of asthma resents to the emergency department with chief complaint of shortness of breath. Patient reports worsening shortness of breath that started this afternoon. He is attempted use his inhaler without symptomatic relief. (Claudette Garcia) Patient is a 37 year old male who presents with Department complaining of asthma exacerbation. Originally seen his a quick note. Workup started including chest x-ray. States he has noticed increased shortness of breath for the last 30 minutes prior to arrival. Was recently evaluated approximately 1 week ago and diagnosed with an asthma exacerbation. Was given a prescription for prednisone as well as an albuterol inhaler and instructed follow-up. States he initially did improve but began having wheezing again tonight. Has noticed a productive cough as well as his abnormal for him. Denies any fevers or sick contacts. Denies any rhinorrhea. Presents for further evaluation at this time. Denies any other acute complaints including abdominal pain, nausea, vomiting, chest pain. No known sick contacts. Presents for further evaluation. (Miguel Angel Pedersen) - Related Data Home Medications Medication Instructions Recorded Confirmed Acetaminophen Tab [Tylenol Tab] 1,000 mg PO Q6H PRN 09/27/22 09/27/22 Albuterol Inhaler [Ventolin Hfa 2 puff INHALATION RT-QID PRN 09/27/22 09/27/22 Inhaler] Previous Rx's Medication Instructions Recorded Albuterol Sulfate [Albuterol 2 puff PO Q6H #8.5 gm 09/27/22 Sulfate Hfa] Doxycycline Hyclate 100 mg PO BID 5 Days #10 capsule 09/27/22 predniSONE [Deltasone] 40 mg PO DAILY 5 Days #10 tab 09/27/22 Allergies Allergy/AdvReac Type Severity Reaction Status Date / Time No Known Allergies Allergy Verified 06/08/22 05:22 Review of Systems ROS Other: All systems not noted in ROS Statement are negative. <Claudette Garcia - Last Filed: 09/27/22 20:40> ROS Other: All systems not noted in ROS Statement are negative. <Miguel Angel Pedersen - Last Filed: 09/28/22 01:40> ROS Statement: Those systems with pertinent positive or pertinent negative responses have been documented in the HPI. Review of Systems: CONST: Denies fever EYES: Denies blurry vision ENT: Denies nasal congestion C/V: Denies Chest pain RESP: Endorses wheezing, productive cough GI: Denies abdominal pain : Denies dysuria SKIN: Denies rash. MSK: Denies joint pain. NEURO: Denies headache (Miguel Angel Pedersen) Past Medical History Past Medical History: Asthma History of Any Multi-Drug Resistant Organisms: None Reported Past Surgical History: No Surgical Hx Reported Past Psychological History: No Psychological Hx Reported, Schizophrenia Smoking Status: Current every day smoker Past Alcohol Use History: Occasional Past Drug Use History: Marijuana <Claudette Garcia - Last Filed: 09/27/22 20:40> General Exam <Claudette Garcia - Last Filed: 09/27/22 20:40> <Miguel Angel Pedersen - Last Filed: 09/28/22 01:40> - General Exam Comments Initial Comments: Visual Physical Exam Vital signs reviewed General: Well-appearing, nontoxic, no acute distress. Head: Normocephalic, atraumatic Eyes: PERRLA, EOMI ENT: Airway patent Chest: Nonlabored breathing Skin: No visual rash, normal skin tone Neuro: Alert and oriented 3 Musculoskeletal: No gross abnormalities (Claudette Garcia) General: Appears in no acute distress. HEAD: Normal with no signs of head trauma. EYES: PERRLA, EOMI, conjunctiva normal, no discharge. ENT: Hearing grossly intact, normal oropharynx. RESPIRATORY: Bilateral neck surgery wheezing was mild. No hypoxia. 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 C/V: Regular rate and rhythm. S1 and S2 auscultated. Peripheral pulses 2+ intact throughout. ABD: Abd is soft, nontender, nondistended EXT: Normal range of motion, no obvious deformity SKIN: No rashes or lesions observed on exposed skin. NEURO: Alert and oriented 4. (Miguel Angel Pedersen) Course Vital Signs 09/27/22 09/27/22 09/27/22 20:45 22:24 22:34 Temperature 98 F Pulse Rate 94 63 65 Respiratory 24 Rate Blood Pressure 109/73 O2 Sat by Pulse 93 L Oximetry 09/27/22 09/27/22 22:50 23:51 Temperature Pulse Rate 64 69 Respiratory 18 18 Rate Blood Pressure 107/69 122/74 O2 Sat by Pulse 98 96 Oximetry Medical Decision Making <Miguel Angel Pedersen - Last Filed: 09/28/22 01:40> - Medical Decision Making Was pt. sent in by a medical professional or institution ([facility], [facility], urgent care, hospital, or [facility]...) When possible be specific @ -No Did you speak to anyone other than the patient for history (EMS, parent, family, police, friend...)? What history was obtained from this source @ -No Did you review nursing and triage notes (agree or disagree)? Why? @ -I reviewed and agree with nursing and triage notes Were old charts reviewed (outside hosp., previous admission, EMS record, old EKG, old radiological studies, urgent care reports/EKG's, [facility] records)? Report findings @ -No old charts were reviewed Differential Diagnosis (chest pain, altered mental status, abdominal pain women, abdominal pain men, vaginal bleeding, weakness, fever, dyspnea, syncope, headache, dizziness, GI bleed, back pain, seizure, CVA, palpatations, mental health, musculoskeletal)? @ -Asthma exacerbation, pneumonia, bronchitis. This list is not all-inclusive. EKG interpreted by me (3pts min.). @ -No done X-rays interpreted by me (1pt min.). @ -Chest x-ray shows no obvious acute cardio pulmonary process. CT interpreted by me (1pt min.). @ -None done U/S interpreted by me (1pt. min.). @ -None done What testing was considered but not performed or refused? (CT, X-rays, U/S, labs)? Why? @ -None What meds were considered but not given or refused? Why? @ -None Did you discuss the management of the patient with other professionals (professionals i.e. KANE Jay, [employer], lab, RT, psych nurse, social science manager, creative consultant, teacher, chief commercial officer, bilingual case manager)? Give summary @ -No Was smoking cessation discussed for >3mins.? @ -No Was critical care preformed (if so, how long)? @ -No Were there social determinants of health that impacted care today? How? (Homelessness, low income, unemployed, alcoholism, drug addiction, transportation, low edu. Level, literacy, decrease access to med. care, [facility], rehab)? @ -No Was there de-escalation of care discussed even if they declined (Discuss DNR or withdrawal of care, Hospice)? DNR status @ -No What co-morbidities impacted this encounter? (DM, HTN, Smoking, COPD, CAD, Cancer, CVA, ARF, Chemo, Hep., AIDS, mental health diagnosis, sleep apnea, morbid obesity)? @ -Asthma Was patient admitted / discharged? Hospital course, mention meds given and route, prescriptions, significant lab abnormalities, going to OR and other pertinent info. @ -Based on the patient's presentation and physical exam, concern for asthma exacerbation. Chest x-ray was already ordered and is pending. He will be symptomatically treat with IM steroids as well as a breathing treatment. He was in agreement this plan. Vital signs within acceptable limits. Patient's wheezing is improved following breathing treatment. Chest x-ray shows no obvious acute cardio, process or infiltrate. On reevaluation, I did discuss workup. As he is having any increased productive cough we will cover him for bronchitis with an antibiotic doxycycline. He was in agreement this plan. Strict return precautions discussed. Discussed he is having an asthma exacerbation we will cover him for bronchitis. He expressed understanding. Recommended follow-up with pulmonology which he has yet to do. I will provide the patient with a prescription for doxycycline, prednisone, albuterol inhaler. I instructed the patient to follow up with their PCP in the next 1-3 days. I provided contact information for follow up with pulmonology. I explained that the patient should return to the emergency department if they experience any worsening symptoms. Strict return precautions were discussed with the patient. The patient expressed understanding of these instructions. I answered all questions that the patient had. The patient was discharged home in good condition with their prescriptions and follow up information. Undiagnosed new problem with uncertain prognosis? @ -No Drug Therapy requiring intensive monitoring for toxicity (Heparin, Nitro, Insulin, Cardizem)? @ -No Were any procedures done? @ -No Diagnosis/symptom? @ -Asthma exacerbation, bronchitis Acute, or Chronic, or Acute on Chronic? @ -Acute Uncomplicated (without systemic symptoms) or Complicated (systemic symptoms)? @ -Complicated Side effects of treatment? @ -No Exacerbation, Progression, or Severe Exacerbation? @ -Exacerbation Poses a threat to life or bodily function? How? (Chest pain, [place], [place], pneumonia, PE, COPD, DKA, ARF, appy, cholecystitis, CVA, Diverticulitis, Homicidal, Suicidal, threat to staff... and all critical care pts) @ -No (Miguel Angel Pedersen) Disposition <Claudette Garcia - Last Filed: 09/27/22 20:40> Is patient prescribed a controlled substance at d/c from ED?: No Time of Disposition: 23:05 <Miguel Angel Pedersen - Last Filed: 09/28/22 01:40> Clinical Impression: Asthma, Bronchitis Disposition: HOME SELF-CARE Condition: Good Instructions (If sedation given, give patient instructions): Asthma (ED) Prescriptions: Albuterol Sulfate [Albuterol Sulfate Hfa] 2 puff PO Q6H #8.5 gm predniSONE [Deltasone] 40 mg PO DAILY 5 Days #10 tab Doxycycline Hyclate 100 mg PO BID 5 Days #10 capsule Referrals: None,Stated [Primary Care Provider] - 1-2 days Justin Castillo DO [Doctor of Osteopathic Medicine] - 1-2 days
[2022-09-27 20:48] VITALS: TEMP 98
[2022-09-27] MEDS ORDERED: methylPREDNISolone SOD SUCCI 125 MG/2 ML VIAL IM ONE (21:07)
--- NOTE | 2022-09-27 21:38 | XR ---
EXAMINATION TYPE: XR chest 2V DATE OF EXAM: 09/27/2022 COMPARISON: 09/18/2022 INDICATION: Asthma TECHNIQUE: Frontal and lateral views of the chest are obtained. FINDINGS: The heart size is normal. The pulmonary vasculature is normal. The lungs are clear. IMPRESSION: 1. No acute pulmonary process.
[2022-09-27] MEDS ORDERED: IPRATROPIUM-ALBUTEROL 3 ML NEB INHALATION STA (21:40)
[2022-09-27 22:51] VITALS: RESP 18
[2022-09-27] MEDS ORDERED: DOXYCYCLINE 100 MG CAP PO STA (23:12)
[2022-09-27 23:59] VITALS: BP 122/74; PULSE 69
== END 2022-09-27 23:59 | disposition home or self-care (01) ==
LOC: EC 20:39
DX: J45.901 Unspecified asthma with (acute) exacerbation (principal); F12.90 Cannabis use, unspecified, uncomplicated; F17.200 Nicotine dependence, unspecified, uncomplicated; Z79.52 Long term (current) use of systemic steroids
CPT/HCPCS: 94640; 71046; 99284; 96372; J2930

== ENCOUNTER 2022-12-09 09:51 | Emergency (ER) | payer BC ==
[2022-12-09 10:02] VITALS: RESP 18
--- NOTE | 2022-12-09 10:17 | XR ---
EXAMINATION TYPE: XR chest 2V DATE OF EXAM: 12/09/2022 COMPARISON: 09/27/2022 HISTORY: 37 year-old male shortness of breath TECHNIQUE: PA and lateral views FINDINGS: The cardiomediastinal silhouette, aorta, and pulmonary vasculature are within normal limits. Lungs an d pleural spaces are clear. IMPRESSION: No acute cardiopulmonary process.
[2022-12-09] MEDS ORDERED: DEXAMETHASONE SOD PHOSPHATE 10 MG/ML 1 ML VIAL IM STA (10:47)
[2022-12-09] MEDS ORDERED: IPRATROPIUM-ALBUTEROL 3 ML NEB INHALATION STA (10:47)
--- NOTE | 2022-12-09 10:51 | ED ---
General Adult HPI - General Chief complaint: Shortness of Breath Stated complaint: ELVIRA Time Seen by Provider: 12/09/22 10:39 Source: patient, RN notes reviewed, old records reviewed Mode of arrival: ambulatory - History of Present Illness Initial comments: Nontoxic appearing 37-year-old male presents to the emergency room with complaints of shortness of breath since last night. 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 He states that he has been using his albuterol multiple times a day. Denies any fevers. States does not smoke. Does not have a primary care doctor. Has been trying to get into a trademark affixer but has been unable. States in the past he had a prescription for a purple inhaler and has been on Singulair in the past. Does not have these medications at this time. -: hour(s) Severity scale (1-10): 0 Consistency: intermittent Improves with: medication (albuterol) Associated Symptoms: denies other symptoms Treatments Prior to Arrival: other (albuterol) - Related Data Home Medications Medication Instructions Recorded Confirmed Acetaminophen Tab [Tylenol Tab] 1,000 mg PO Q6H PRN 09/27/22 09/27/22 Previous Rx's Medication Instructions Recorded Albuterol Sulfate [Albuterol 2 puff PO Q6H #8.5 gm 09/27/22 Sulfate Hfa] Doxycycline Hyclate 100 mg PO BID 5 Days #10 capsule 09/27/22 Albuterol Inhaler [Ventolin Hfa 2 puff INHALATION RT-QID PRN #1 12/09/22 Inhaler] each Fluticasone Propion/Salmeterol 2 puff INHALATION BID #1 each 12/09/22 [Advair Hfa 230-21 Mcg Inhaler] Montelukast [Singulair] 10 mg PO DAILY 30 Days #30 tab 12/09/22 predniSONE [Deltasone] 40 mg PO DAILY 5 Days #10 tab 12/09/22 Allergies Allergy/AdvReac Type Severity Reaction Status Date / Time No Known Allergies Allergy Verified 12/09/22 10:02 Review of Systems ROS Statement: Those systems with pertinent positive or pertinent negative responses have been documented in the HPI. ROS Other: All systems not noted in ROS Statement are negative. Past Medical History Past Medical History: Asthma History of Any Multi-Drug Resistant Organisms: None Reported Past Surgical History: No Surgical Hx Reported Past Psychological History: No Psychological Hx Reported, Schizophrenia Smoking Status: Current every day smoker Past Alcohol Use History: Occasional Past Drug Use History: Marijuana General Exam General appearance: alert, in no apparent distress Head exam: Present: atraumatic, normocephalic Eye exam: Present: normal appearance. Absent: scleral icterus, conjunctival injection, periorbital swelling Neck exam: Present: full ROM. Absent: tenderness, meningismus Respiratory exam: Present: wheezes (expiratory bilaterally). Absent: respiratory distress, accessory muscle use, decreased breath sounds Cardiovascular Exam: Present: regular rate Extremities exam: Present: full ROM. Absent: tenderness Back exam: Absent: tenderness, paraspinal tenderness, vertebral tenderness Neurological exam: Present: alert, oriented X3 Psychiatric exam: Present: normal affect, normal mood Skin exam: Present: warm, dry, normal color. Absent: cyanosis, diaphoretic, pallor Course Vital Signs 12/09/22 12/09/22 12/09/22 09:58 11:13 11:22 Temperature 98.4 F Pulse Rate 75 82 82 Respiratory 18 Rate Blood Pressure 108/74 O2 Sat by Pulse 94 L Oximetry 12/09/22 11:54 Temperature 98.2 F Pulse Rate 50 L Respiratory 18 Rate Blood Pressure 106/67 O2 Sat by Pulse 100 Oximetry Medical Decision Making - Medical Decision Making Was pt. sent in by a medical professional or institution (KANE Jay, WELDING MACHINE OPERATOR [employer], urgent care, hospital, or retirement...) When possible be specific @ -No Did you speak to anyone other than the patient for history (EMS, parent, family, police, friend...)? What history was obtained from this source @ -No Did you review nursing and triage notes (agree or disagree)? Why? @ -I reviewed and agree with nursing and triage notes Were old charts reviewed (outside hosp., previous admission, EMS record, old EKG, old radiological studies, urgent care reports/EKG's, retirement records)? Report findings @ -Previous ER visits for asthma Differential Diagnosis (chest pain, altered mental status, abdominal pain women, abdominal pain men, vaginal bleeding, weakness, fever, dyspnea, syncope, headache, dizziness, GI bleed, back pain, seizure, CVA, palpatations, mental health, musculoskeletal)? @ -Differential Dyspnea: Coronary syndrome, arrhythmia, tamponade, asthma, COPD, pulmonary embolism, pneumonia, pneumothorax, pulmonary effusion, anaphylaxis, diabetic ketoacidosis, flailed chest, pulmonary contusion, diaphragmatic rupture, anemia, neuromuscular, this is not meant to be an all-inclusive list. EKG interpreted by me (3pts min.). @ -n/a X-rays interpreted by me (1pt min.). @ -None done CT interpreted by me (1pt min.). @ -None done U/S interpreted by me (1pt. min.). @ -None done What testing was considered but not performed or refused? (CT, X-rays, U/S, labs)? Why? @ -None What meds were considered but not given or refused? Why? @ -None Did you discuss the management of the patient with other professionals (professionals i.e. , PA, WELDING MACHINE OPERATOR [employer], lab, RT, psych nurse, social science teacher, manager intern, teacher, naval gunfire liaison officer, geriatric case manager)? Give summary @ -No Was smoking cessation discussed for >3mins.? @ -No Was critical care preformed (if so, how long)? @ -No] Were there social determinants of health that impacted care today? How? (Homelessness, low income, unemployed, alcoholism, drug addiction, transportation, low edu. Level, literacy, decrease access to med. care, alf, rehab)? @ -No primary care doctor Was there de-escalation of care discussed even if they declined (Discuss DNR or withdrawal of care, Hospice)? DNR status @ -[No] What co-morbidities impacted this encounter? (DM, HTN, Smoking, COPD, CAD, Cancer, CVA, ARF, Chemo, Hep., AIDS, mental health diagnosis, sleep apnea, morbid obesity)? @ -Asthma Was patient admitted / discharged? Hospital course, mention meds given and route, prescriptions, significant lab abnormalities, going to OR and other pertinent info. @ -Discharged Nontoxic appearing 37-year-old male presents to the emergency room with complaints of shortness of breath since last night. 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 He states that he has been using his albuterol multiple times a day. Denies any fevers. States does not smoke. Does not have a primary care doctor. Has been trying to get into a trademark affixer but has been unable. States in the past he had a prescription for a purple inhaler and has been on Singulair in the past. Does not have these medications at this time. He was given a breathing treatment along with shot of Decadron. Lung sounds are clear after treatment. States feeling much better. Agreeable to discharge. I prescribed him Singulair, Prednisone and Advair along with his albuterol inhaler. I impressed upon him the importance of following up with the primary care doctor for proper management. Wear a mask or respirator while at work which seems to be a trigger for his asthma. Directed to follow-up with a primary care doctor and trademark affixer for continuation of care. Case discussed with Dr. Kumar. Undiagnosed new problem with uncertain prognosis? @ -[No] Drug Therapy requiring intensive monitoring for toxicity (Heparin, Nitro, Insulin, Cardizem)? @ -[No] Were any procedures done? @ -[No] Diagnosis/symptom? @ -Asthma exacerbation Acute, or Chronic, or Acute on Chronic? @ -Acute Uncomplicated (without systemic symptoms) or Complicated (systemic symptoms)? @ -Uncomplicated Side effects of treatment? @ -[No] Exacerbation, Progression, or Severe Exacerbation? @ -Exacerbation Poses a threat to life or bodily function? How? (Chest pain, USA, [place], pneumonia, PE, COPD, DKA, ARF, appy, cholecystitis, CVA, Diverticulitis, Homicidal, Suicidal, threat to staff... and all critical care pts) @ -[No] Disposition Clinical Impression: Asthma exacerbation Disposition: HOME SELF-CARE Condition: Good Instructions (If sedation given, give patient instructions): Asthma (ED) Additional Instructions: Us the Advair inhaler 2 puffs twice a day every day. Albuterol 2 puffs every 4- 6 hours as needed. Take Singulair daily. Take prednisone as prescribed for the next 5 days. Follow-up with a primary care doctor, a list has been provided to you. Return to the emergency room with any new or concerning symptoms. Prescriptions: Fluticasone Propion/Salmeterol [Advair Hfa 230-21 Mcg Inhaler] 2 puff INHALATION BID #1 each predniSONE [Deltasone] 40 mg PO DAILY 5 Days #10 tab Montelukast [Singulair] 10 mg PO DAILY 30 Days #30 tab Albuterol Inhaler [Ventolin Hfa Inhaler] 2 puff INHALATION RT-QID PRN #1 each PRN Reason: Shortness Of Breath Is patient prescribed a controlled substance at d/c from ED?: No Referrals: None,Stated [Primary Care Provider] - 1-2 days Forms: Area PCPs Time of Disposition: 11:45
[2022-12-09 11:57] VITALS: BP 106/67; PULSE 50; TEMP 98.2
== END 2022-12-09 11:55 | disposition home or self-care (01) ==
LOC: EC 09:51
DX: J45.901 Unspecified asthma with (acute) exacerbation (principal); F17.200 Nicotine dependence, unspecified, uncomplicated; F12.90 Cannabis use, unspecified, uncomplicated
CPT/HCPCS: 71046; 94640; 99284

== ENCOUNTER 2023-02-10 06:40 | Emergency (ER) | payer BC ==
[2023-02-10] MEDS ORDERED: IPRATROPIUM-ALBUTEROL 3 ML NEB INHALATION STA (07:09)
[2023-02-10 07:39] VITALS: RESP 16
--- NOTE | 2023-02-10 07:58 | XR ---
EXAMINATION TYPE: XR chest 2V DATE OF EXAM: 02/10/2023 COMPARISON: 12/09/2022 HISTORY: Chest pain TECHNIQUE: Frontal and lateral views of the chest are obtained. FINDINGS: There is no focal air space opacity. No evidence for pneumothorax. No pleural effusion. The cardiac silhouette size is within normal limits. The osseous structures are grossly intact. IMPRESSION: 1. No acute cardiopulmonary process.
--- NOTE | 2023-02-10 08:01 | ED ---
General Adult HPI - General Chief complaint: Shortness of Breath Stated complaint: Difficulty Breathing Time Seen by Provider: 02/10/23 07:00 Source: patient, RN notes reviewed Mode of arrival: ambulatory Limitations: no limitations - History of Present Illness Initial comments: 38-year-old male presents emergency Department chief complaint shortness breath. Patient has a history of asthma. Patient states he has very tight, restrictive. He states his was more of an occipital last 24 hours. Patient states his inhalers . Denies any fever or productive cough no significant congestion. - Related Data Home Medications Medication Instructions Recorded Confirmed Acetaminophen Tab [Tylenol Tab] 1,000 mg PO Q6H PRN 09/27/22 09/27/22 Previous Rx's Medication Instructions Recorded Albuterol Sulfate [Albuterol 2 puff PO Q6H #8.5 gm 09/27/22 Sulfate Hfa] Doxycycline Hyclate 100 mg PO BID 5 Days #10 capsule 09/27/22 Albuterol Inhaler [Ventolin Hfa 2 puff INHALATION RT-QID PRN #1 12/09/22 Inhaler] each Fluticasone Propion/Salmeterol 2 puff INHALATION BID #1 each 12/09/22 [Advair Hfa 230-21 Mcg Inhaler] Montelukast [Singulair] 10 mg PO DAILY 30 Days #30 tab 12/09/22 predniSONE [Deltasone] 40 mg PO DAILY 5 Days #10 tab 12/09/22 Albuterol Inhaler [Ventolin Hfa 1 - 2 puff INHALATION Q6H PRN #1 02/10/23 Inhaler] each predniSONE 50 mg PO DAILY #5 tab 02/10/23 Allergies Allergy/AdvReac Type Severity Reaction Status Date / Time No Known Allergies Allergy Verified 02/10/23 06:58 Review of Systems ROS Statement: Those systems with pertinent positive or pertinent negative responses have been documented in the HPI. ROS Other: All systems not noted in ROS Statement are negative. Past Medical History Past Medical History: Asthma History of Any Multi-Drug Resistant Organisms: None Reported Past Surgical History: No Surgical Hx Reported Past Psychological History: Schizophrenia Smoking Status: Former smoker Past Alcohol Use History: Occasional Past Drug Use History: Marijuana General Exam Limitations: no limitations General appearance: alert, in no apparent distress Head exam: Present: atraumatic, normocephalic, normal inspection Eye exam: Present: normal appearance, PERRL, EOMI. Absent: scleral icterus, conjunctival injection, periorbital swelling ENT exam: Present: normal exam, normal oropharynx, mucous membranes moist Neck exam: Present: normal inspection, full ROM. Absent: tenderness, meningismus, lymphadenopathy Respiratory exam: Present: wheezes, decreased breath sounds. Absent: normal lung sounds bilaterally, respiratory distress, rales, rhonchi, stridor Cardiovascular Exam: Present: regular rate, normal rhythm, normal heart sounds. Absent: systolic murmur, diastolic murmur, rubs, gallop, clicks Course Vital Signs 02/10/23 02/10/23 02/10/23 06:58 07:25 07:49 Temperature 98.1 F 98.0 F Pulse Rate 60 55 L 70 Respiratory 18 16 Rate Blood Pressure 125/89 110/84 O2 Sat by Pulse 98 96 Oximetry 02/10/23 02/10/23 08:06 08:52 Temperature 98.1 F Pulse Rate 74 55 L Respiratory 16 Rate Blood Pressure 110/58 O2 Sat by Pulse 96 Oximetry Medical Decision Making - Medical Decision Making Was pt. sent in by a medical professional or institution (, PA, LOCKSTITCH BINDER, urgent care, hospital, or group home...) When possible be specific @ -No Did you speak to anyone other than the patient for history (EMS, parent, family, police, friend...)? What history was obtained from this source @ -No Did you review nursing and triage notes (agree or disagree)? Why? @ -I reviewed and agree with nursing and triage notes Were old charts reviewed (outside hosp., previous admission, EMS record, old EKG, old radiological studies, urgent care reports/EKG's, group home records)? Report findings @ -No old charts were reviewed Differential Diagnosis (chest pain, altered mental status, abdominal pain women, abdominal pain men, vaginal bleeding, weakness, fever, dyspnea, syncope, headache, dizziness, GI bleed, back pain, seizure, CVA, palpatations, mental health, musculoskeletal)? @ -Differential Dyspnea: Coronary syndrome, arrhythmia, tamponade, asthma, COPD, pulmonary embolism, pneumonia, pneumothorax, pulmonary effusion, anaphylaxis, diabetic ketoacidosis, flailed chest, pulmonary contusion, diaphragmatic rupture, anemia, neuromuscular, this is not meant to be an all-inclusive list. e EKG interpreted by me (3pts min.). @ -None X-rays interpreted by me (1pt min.). @ -Chest x-ray shows no acute process CT interpreted by me (1pt min.). @ -None done U/S interpreted by me (1pt. min.). @ -None done What testing was considered but not performed or refused? (CT, X-rays, U/S, labs)? Why? @ -None What meds were considered but not given or refused? Why? @ -None] Did you discuss the management of the patient with other professionals (brandie amos i.e. , PA, LOCKSTITCH BINDER, lab, RT, psych nurse, social work coordinator, rotary filter operator, teacher, corporation officer, caseworker protective services)? Give summary @ -[No] Was smoking cessation discussed for >3mins.? @ -[No] Was critical care preformed (if so, how long)? @ -[No] Were there social determinants of health that impacted care today? How? (Homelessness, low income, unemployed, alcoholism, drug addiction, transportation, low edu. Level, literacy, decrease access to med. care, alf, rehab)? @ -[No] Was there de-escalation of care discussed even if they declined (Discuss DNR or withdrawal of care, Hospice)? DNR status @ -[No] What co-morbidities impacted this encounter? (DM, HTN, Smoking, COPD, CAD, Cancer, CVA, ARF, Chemo, Hep., AIDS, mental health diagnosis, sleep apnea, morbid obesity)? @ -[Asthma] Was patient admitted / discharged? Hospital course, mention meds given and route, prescriptions, significant lab abnormalities, going to OR and other pertinent info. @ -[Discharge patient feels greatly improved after DuoNeb treatment and x-rays unremarkable. Patient has acute asthma exacerbation. Condition discharged with prednisone, albuterol inhaler] Undiagnosed new problem with uncertain prognosis? @ -[No] Drug Therapy requiring intensive monitoring for toxicity (Heparin, Nitro, Insulin, Cardizem)? @ -[No] Were any procedures done? @ -[No] Diagnosis/symptom? @ -[Asthma exacerbation Acute, or Chronic, or Acute on Chronic? @ -[Acute] Uncomplicated (without systemic symptoms) or Complicated (systemic symptoms)? @ -[Uncomplicated] Side effects of treatment? @ -[No] Exacerbation, Progression, or Severe Exacerbation? @ -[No] Poses a threat to life or bodily function? How? (Chest pain, [place], [place], pneumonia, PE, COPD, DKA, ARF, appy, cholecystitis, CVA, Diverticulitis, Homicidal, Suicidal, threat to staff... and all critical care pts) @ -[No] Disposition Clinical Impression: Asthma exacerbation Disposition: HOME SELF-CARE Condition: Stable Instructions (If sedation given, give patient instructions): Asthma (ED) Additional Instructions: Please return to the Emergency Department if symptoms worsen or any other concerns. Prescriptions: predniSONE 50 mg PO DAILY #5 tab Albuterol Inhaler [Ventolin Hfa Inhaler] 1 - 2 puff INHALATION Q6H PRN #1 each PRN Reason: Shortness Of Breath Is patient prescribed a controlled substance at d/c from ED?: No Referrals: None,Stated [Primary Care Provider] - 1-2 days Time of Disposition: 08:32
[2023-02-10 08:53] VITALS: BP 110/58; PULSE 55; TEMP 98.1
== END 2023-02-10 08:59 | disposition home or self-care (01) ==
LOC: EC 06:40
DX: J45.901 Unspecified asthma with (acute) exacerbation (principal); F12.90 Cannabis use, unspecified, uncomplicated; Z87.891 Personal history of nicotine dependence
CPT/HCPCS: 71046; 94640; 99284

== ENCOUNTER 2023-05-09 07:34 | Emergency (ER) | payer BC ==
[2023-05-09] MEDS ORDERED: IPRATROPIUM-ALBUTEROL 3 ML NEB INHALATION STA (07:49)
[2023-05-09] MEDS ORDERED: methylPREDNISolone SOD SUCCI 125 MG/2 ML VIAL IM ONE (07:49)
--- NOTE | 2023-05-09 07:51 | ED ---
General Adult HPI - General Chief complaint: Shortness of Breath Stated complaint: ELVIRA Time Seen by Provider: 05/09/23 07:49 Source: patient, RN notes reviewed Mode of arrival: ambulatory Limitations: no limitations - History of Present Illness Initial comments: 38-year-old male presents emergency Department with chief complaint of shortness breath. Patient has a history of asthma. He states he does not have current inhaler he states he attempted by 1 [id number] was not helping with his asthma. He denies any reported fever no significant chest congestion. He states she's noticed increasing wheezing which is worse with cold air. Patient denies any sick contacts no headache or dizziness or chest pain. - Related Data Home Medications Medication Instructions Recorded Confirmed Acetaminophen Tab [Tylenol Tab] 1,000 mg PO Q6H PRN 09/27/22 09/27/22 Previous Rx's Medication Instructions Recorded Albuterol Sulfate [Albuterol 2 puff PO Q6H #8.5 gm 09/27/22 Sulfate Hfa] Doxycycline Hyclate 100 mg PO BID 5 Days #10 capsule 09/27/22 Albuterol Inhaler [Ventolin Hfa 2 puff INHALATION RT-QID PRN #1 12/09/22 Inhaler] each Fluticasone Propion/Salmeterol 2 puff INHALATION BID #1 each 12/09/22 [Advair Hfa 230-21 Mcg Inhaler] Montelukast [Singulair] 10 mg PO DAILY 30 Days #30 tab 12/09/22 predniSONE [Deltasone] 40 mg PO DAILY 5 Days #10 tab 12/09/22 Albuterol Inhaler [Ventolin Hfa 1 - 2 puff INHALATION Q6H PRN #1 02/10/23 Inhaler] each predniSONE 50 mg PO DAILY #5 tab 02/10/23 Albuterol Inhaler [Ventolin Hfa 1 - 2 puff INHALATION Q6H PRN #1 05/09/23 Inhaler] each predniSONE 50 mg PO DAILY #5 tab 05/09/23 Allergies Allergy/AdvReac Type Severity Reaction Status Date / Time No Known Allergies Allergy Verified 05/09/23 07:49 Review of Systems ROS Statement: Those systems with pertinent positive or pertinent negative responses have been documented in the HPI. ROS Other: All systems not noted in ROS Statement are negative. Past Medical History Past Medical History: Asthma History of Any Multi-Drug Resistant Organisms: None Reported Past Surgical History: No Surgical Hx Reported Past Psychological History: Schizophrenia Smoking Status: Former smoker Past Alcohol Use History: Occasional Past Drug Use History: Marijuana General Exam Limitations: no limitations General appearance: alert, in no apparent distress Head exam: Present: atraumatic, normocephalic, normal inspection Eye exam: Present: normal appearance, PERRL, EOMI. Absent: scleral icterus, conjunctival injection, periorbital swelling ENT exam: Present: normal exam, normal oropharynx, mucous membranes moist Neck exam: Present: normal inspection. Absent: tenderness, meningismus, full ROM, lymphadenopathy Respiratory exam: Present: wheezes, decreased breath sounds. Absent: normal lung sounds bilaterally, respiratory distress, rales, rhonchi, stridor Cardiovascular Exam: Present: regular rate, normal rhythm, normal heart sounds. Absent: systolic murmur, diastolic murmur, rubs, gallop, clicks GI/Abdominal exam: Present: soft, normal bowel sounds. Absent: distended, tenderness, guarding, rebound, rigid Course Vital Signs 05/09/23 05/09/23 05/09/23 07:47 08:17 08:33 Temperature 977 F H Pulse Rate 56 L 60 64 Respiratory 22 Rate Blood Pressure 106/66 O2 Sat by Pulse 94 L Oximetry Medical Decision Making - Medical Decision Making Was pt. sent in by a medical professional or institution (KANE Jay, SALES TEAM MEMBER, urgent care, hospital, or residential...) When possible be specific @ -No Did you speak to anyone other than the patient for history (EMS, parent, family, police, friend...)? What history was obtained from this source @ -No Did you review nursing and triage notes (agree or disagree)? Why? @ -I reviewed and agree with nursing and triage notes Were old charts reviewed (outside hosp., previous admission, EMS record, old EKG, old radiological studies, urgent care reports/EKG's, residential records)? Report findings @ -Review prior x-rays, ER visits Differential Diagnosis (chest pain, altered mental status, abdominal pain women, abdominal pain men, vaginal bleeding, weakness, fever, dyspnea, syncope, headache, dizziness, GI bleed, back pain, seizure, CVA, palpatations, mental health, musculoskeletal)? @ -Differential Dyspnea: Coronary syndrome, arrhythmia, tamponade, asthma, COPD, pulmonary embolism, pneumonia, pneumothorax, pulmonary effusion, anaphylaxis, diabetic ketoacidosis, flailed chest, pulmonary contusion, diaphragmatic rupture, anemia, neuromuscular, this is not meant to be an all-inclusive list. EKG interpreted by me (3pts min.). @ -None X-rays interpreted by me (1pt min.). @ -Chest x-ray two-view in no acute infiltrate or pneumothorax or acute abnormality. CT interpreted by me (1pt min.). @ -None done U/S interpreted by me (1pt. min.). @ -None done What testing was considered but not performed or refused? (CT, X-rays, U/S, labs)? Why? @ -None What meds were considered but not given or refused? Why? @ -None Did you discuss the management of the patient with other professionals (professionals i.e. , PA, SALES TEAM MEMBER, lab, RT, psych nurse, social worker school, track watchman, teacher, chief security and safety officer, telehealth case manager)? Give summary @ -No Was smoking cessation discussed for >3mins.? @ -No Was critical care preformed (if so, how long)? @ -No Were there social determinants of health that impacted care today? How? (Homelessness, low income, unemployed, alcoholism, drug addiction, transportation, low edu. Level, literacy, decrease access to med. care, [facility], rehab)? @ -No Was there de-escalation of care discussed even if they declined (Discuss DNR or withdrawal of care, Hospice)? DNR status @ -No What co-morbidities impacted this encounter? (DM, HTN, Smoking, COPD, CAD, Cancer, CVA, ARF, Chemo, Hep., AIDS, mental health diagnosis, sleep apnea, morbid obesity)? @ -Asthma Was patient admitted / discharged? Hospital course, mention meds given and route, prescriptions, significant lab abnormalities, going to OR and other pertinent info. @ -[Discharge patient presented for shortness of breath. Patient is having acute asthma exacerbation patient was given DuoNeb treatment, Solu-Medrol IM in which he states he feels greatly improved. Patient wheezing has diminished. Patient discharged with prednisone, albuterol inhaler. Undiagnosed new problem with uncertain prognosis? @ -No Drug Therapy requiring intensive monitoring for toxicity (Heparin, Nitro, Insulin, Cardizem)? @ -No Were any procedures done? @ -No Diagnosis/symptom? @ -Asthma exacerbation Acute, or Chronic, or Acute on Chronic? @ -Acute Uncomplicated (without systemic symptoms) or Complicated (systemic symptoms)? @ -Uncomplicated Side effects of treatment? @ -No Exacerbation, Progression, or Severe Exacerbation? @ -Exacerbation Poses a threat to life or bodily function? How? (Chest pain, [place], [place], pneumonia, PE, COPD, DKA, ARF, appy, cholecystitis, CVA, Diverticulitis, Homicidal, Suicidal, threat to staff... and all critical care pts) @ -No Disposition Clinical Impression: Asthma exacerbation Disposition: HOME SELF-CARE Condition: Stable Instructions (If sedation given, give patient instructions): Asthma (ED) Additional Instructions: Please return to the Emergency Department if symptoms worsen or any other onel rns. Prescriptions: predniSONE 50 mg PO DAILY #5 tab Albuterol Inhaler [Ventolin Hfa Inhaler] 1 - 2 puff INHALATION Q6H PRN #1 each PRN Reason: Shortness Of Breath Is patient prescribed a controlled substance at d/c from ED?: No Referrals: None,Stated [Primary Care Provider] - 1-2 days Time of Disposition: 08:53
--- NOTE | 2023-05-09 08:37 | XR ---
EXAMINATION TYPE: XR chest 2V DATE OF EXAM: 05/09/2023 COMPARISON: 02/10/2023 INDICATION: Short of breath TECHNIQUE: Frontal and lateral views of the chest are obtained. FINDINGS: The heart size is normal. The pulmonary vasculature is normal. The lungs are clear. IMPRESSION: 1. No acute pulmonary process.
[2023-05-09 09:16] VITALS: BP 104/52; PULSE 60; RESP 18; TEMP 97.8
== END 2023-05-09 09:13 | disposition home or self-care (01) ==
LOC: EC 07:34
DX: J45.901 Unspecified asthma with (acute) exacerbation (principal); F12.90 Cannabis use, unspecified, uncomplicated; Z87.891 Personal history of nicotine dependence
CPT/HCPCS: 94640; 71046; 99285; 96372; J2930

== ENCOUNTER 2023-09-16 13:05 | Emergency (ER) | payer BC ==
[2023-09-16 13:40] VITALS: TEMP 97.7
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
[2023-09-16 15:05] LABS: Basophils % (A) 1 %; Eosinophils # (A) 0.1 k/uL (0-0.7); Eosinophils % (A) 2 %; HCT 43.1 % (39.0-53.0); HGB 13.9 gm/dL (13.0-17.5); Lymphocytes # (A) 1.2 k/uL (1.0-4.8); Lymphocytes % (A) 36 %; MCH 30.4 pg (25.0-35.0); MCHC 32.2 g/dL (31.0-37.0); MCV 94.6 fL (80.0-100.0); Mean Platelet Volume 8.2; Monocytes # (A) 0.2 k/uL (0-1.0); Monocytes % (A) 8 %; Neutrophils # (A) 1.6 k/uL (1.3-7.7); Neutrophils % (A) 51 %; Platelet Count 221 k/uL (150-450); RBC 4.56 m/uL (4.30-5.90); RDW 13.8 % (11.5-15.5); WBC 3.2 k/uL (3.8-10.6)
[2023-09-16 15:32] LABS: ALT 18 U/L (4-49); African American GFR (CKD) >90 (>60 ml/min/1.73 sqM); Albumin 4.5 g/dL (3.5-5.0); Anion Gap 7 mmol/L; Blood Urea Nitrogen 18 mg/dL (9-20); Calcium 9.6 mg/dL (8.4-10.2); Carbon Dioxide 25 mmol/L (22-30); Chloride 104 mmol/L (98-107); Glucose 93 mg/dL (74-99); Non-African American GFR(CKD) >90 (>60 ml/min/1.73 sqM); Sodium 136 mmol/L (137-145); Total Bilirubin 0.5 mg/dL (0.2-1.3); Total Protein 7.1 g/dL (6.3-8.2)
[2023-09-16 15:33] LABS: AST 30 U/L (17-59); Alkaline Phosphatase 106 U/L (38-126); Potassium 4.5 mmol/L (3.5-5.1)
[2023-09-16] MEDS: SODIUM CHLORIDE 0.9% 1,000 ML IV STA (16:05)
[2023-09-16 16:34] VITALS: BP 124/84; PULSE 58; RESP 16
== END 2023-09-16 16:18 | disposition home or self-care (01) ==
LOC: EC 13:05
DX: F32.A Depression, unspecified (principal); F12.90 Cannabis use, unspecified, uncomplicated; Z87.891 Personal history of nicotine dependence
CPT/HCPCS: 36415; 80053; 85025; 99283

== ENCOUNTER 2023-10-20 05:17 | Emergency (ER) | payer BC, OTHER ==
[2023-10-20 05:26] VITALS: RESP 18
--- NOTE | 2023-10-20 06:09 | ED ---
SOB HPI - General Chief Complaint: Shortness of Breath Stated Complaint: ELVIRA Time Seen by Provider: 10/20/23 05:57 Source: patient, RN notes reviewed Mode of arrival: ambulatory Limitations: no limitations - History of Present Illness Initial Comments: This is a 38 year old male who presents to the emergency department for shortness of breath. Patient states that he has a history of asthma and this morning started feeling short of breath. States that this feels like a typical asthma exacerbation to him. Denies any chest pain. States that he is out of his albuterol inhaler, which is what he would usually use. He has a minor cough, which he also typically gets from an asthma exacerbation. Denies any fever/chills or sick contacts. MD Complaint: shortness of breath - Related Data Home Medications Medication Instructions Recorded Confirmed Acetaminophen Tab [Tylenol Tab] 1,000 mg PO Q6H PRN 09/27/22 09/27/22 Previous Rx's Medication Instructions Recorded Albuterol Sulfate [Albuterol 2 puff PO Q6H #8.5 gm 09/27/22 Sulfate Hfa] Doxycycline Hyclate 100 mg PO BID 5 Days #10 capsule 09/27/22 Albuterol Inhaler [Ventolin Hfa 2 puff INHALATION RT-QID PRN #1 12/09/22 Inhaler] each Fluticasone Propion/Salmeterol 2 puff INHALATION BID #1 each 12/09/22 [Advair Hfa 230-21 Mcg Inhaler] Montelukast [Singulair] 10 mg PO DAILY 30 Days #30 tab 12/09/22 predniSONE [Deltasone] 40 mg PO DAILY 5 Days #10 tab 12/09/22 Albuterol Inhaler [Ventolin Hfa 1 - 2 puff INHALATION Q6H PRN #1 02/10/23 Inhaler] each predniSONE 50 mg PO DAILY #5 tab 02/10/23 Albuterol Inhaler [Ventolin Hfa 1 - 2 puff INHALATION Q6H PRN #1 05/09/23 Inhaler] each predniSONE 50 mg PO DAILY #5 tab 05/09/23 Albuterol Sulfate [Albuterol 1 - 2 puff PO Q4-6H PRN #8.5 gm 10/20/23 Sulfate Hfa] predniSONE 50 mg PO DAILY 5 Days #5 tab 10/20/23 Allergies Allergy/AdvReac Type Severity Reaction Status Date / Time No Known Allergies Allergy Verified 10/20/23 05:26 Review of Systems ROS Statement: Those systems with pertinent positive or pertinent negative responses have been documented in the HPI. ROS Other: All systems not noted in ROS Statement are negative. Past Medical History Past Medical History: Asthma History of Any Multi-Drug Resistant Organisms: None Reported Past Surgical History: No Surgical Hx Reported Past Psychological History: Schizophrenia Smoking Status: Former smoker Past Alcohol Use History: Daily Past Drug Use History: Marijuana General Exam Limitations: no limitations General appearance: alert, in no apparent distress Head exam: Present: atraumatic, normocephalic, normal inspection Respiratory exam: Present: wheezes, decreased breath sounds, prolonged expiratory Cardiovascular Exam: Present: regular rate, normal rhythm, normal heart sounds. Absent: systolic murmur, diastolic murmur, rubs, gallop, clicks Neurological exam: Present: alert, oriented X3, CN II-XII intact Psychiatric exam: Present: normal affect, normal mood Skin exam: Present: warm, dry, intact, normal color. Absent: rash Course Vital Signs 10/20/23 10/20/23 10/20/23 05:23 05:31 06:25 Temperature 98.1 F Pulse Rate 76 77 Respiratory 18 18 18 Rate Blood Pressure 104/70 O2 Sat by Pulse 97 Oximetry 10/20/23 10/20/23 06:30 06:55 Temperature 98.2 F Pulse Rate 74 70 Respiratory 18 18 Rate Blood Pressure 108/71 O2 Sat by Pulse 98 Oximetry Medical Decision Making - Medical Decision Making This is a 38 year old male who presents to the emergency department for shortness of breath. Was pt. sent in by a medical professional or institution? @ -No Did you speak to anyone other than the patient for history? @ -No Did you review nursing and triage notes? @ -Yes, and I agree, it is accurate with regards to the patient's symptoms. Were old charts reviewed? @ -No Differential Diagnosis? @ -Differential Dyspnea: Coronary syndrome, arrhythmia, tamponade, asthma, COPD, pulmonary embolism, pneumonia, pneumothorax, pulmonary effusion, anaphylaxis, diabetic ketoacidosis, flailed chest, pulmonary contusion, diaphragmatic rupture, anemia, neuromus cular, this is not meant to be an all-inclusive list. EKG interpreted by me (3pts min.)? @ -Not obtained X-rays interpreted by me (1pt min.)? @ -Not obtained CT interpreted by me (1pt min.)? @ -Not obtained U/S interpreted by me (1pt. min.)? @ -Not obtained What testing was considered but not performed? (CT, X-rays, U/S, labs)? Why? @ -I advised a chest x-ray and Cepheid 4-Plex swab at a minimum, and advised that we can also proceed with lab work. Patient declined all testing, as he states that this feels like a typical asthma exacerbation. What meds were considered but not given? Why? @ -I recommended IM Decadron or Solu-Medrol, however patient declined, as he did not want a shot. Did you discuss the management of the patient with other professionals? @ -No Did you reconcile home meds? @ -No Was smoking cessation discussed for >3mins.? @ -I discussed smoking cessation for greater than 3 minutes. The risk of smoking were discussed with the patient including but not limited to risks of cancer, stroke, coronary artery disease and COPD. Also discussed with patient were multiple methods of quitting smoking. Lastly we discussed the financial cost of smoking. Was critical care preformed (if so, how long)? @ -No Were there social determinants of health that impacted care today? How? (Homelessness, low income, unemployed, alcoholism, drug addiction, transportation, low edu. Level, literacy, decrease access to med. care, long term, rehab)? @ -No Was there de-escalation of care discussed even if they declined? (Discuss DNR or withdrawal of care, Hospice)? @ -No What co-morbidities impacted this encounter? (DM, HTN, Smoking, COPD, CAD, Cancer, CVA, Hep., AIDS, mental health diagnosis, sleep apnea, morbid obesity)? @ -Smoking, asthma Was patient admitted / discharged? @ -Discharged. Discussed with the patient a chest x-ray and Cepheid 4-Plex swab due to symptoms of shortness of breath, with the additional possibility of lab work. Patient however declined all testing, as he states that this feels like a typical asthma exacerbation for him. He was agreeable to a DuoNeb breathing treatment which was administered. I did also advise IM Decadron or Solu-Medrol, however he refused that also as he did not want any shots. Refill on his albuterol inhaler provided and he was also given a prescription for a 5- day course of prednisone for the asthma exacerbation. Advised follow-up with his primary care provider for reevaluation. Undiagnosed new problem with uncertain prognosis? @ -None Drug Therapy requiring intensive monitoring for toxicity (Heparin, Nitro, Insulin, Cardizem)? @ -None Were any procedures done? @ -None Diagnosis/symptom? @ -Asthma exacerbation Acute, or Chronic, or Acute on Chronic? @ -Acute on chronic Uncomplicated (without systemic symptoms) or Complicated (systemic symptoms)? @ -Uncomplicated Side effects of treatment? @ -None Exacerbation, Progression, or Severe Exacerbation] @ -Exacerbation Poses a threat to life or bodily function? @ -No Return precautions reviewed in depth, the patient is instructed to return to the emergency department with any new, worsening, or concerning symptoms. Patient verbalized understanding. This case was discussed in detail with the attending ED physician, Dr. Haas. Presentation, findings, and treatment plan discussed in detail as well. Disposition Clinical Impression: Asthma exacerbation, Nicotine dependence Disposition: HOME SELF-CARE Instructions (If sedation given, give patient instructions): Asthma (ED), Wheezing (ED) Additional Instructions: Return to the emergency department with any new, worsening, or concerning symptoms. Take the prednisone daily for 5 days. Use the albuterol inhaler every 4-6 hours as needed for shortness of breath. Follow up with your primary care provider in 1-2 days. Prescriptions: Albuterol Sulfate [Albuterol Sulfate Hfa] 1 - 2 puff PO Q4-6H PRN #8.5 gm PRN Reason: Shortness Of Breath predniSONE 50 mg PO DAILY 5 Days #5 tab Is patient prescribed a controlled substance at d/c from ED?: No Referrals: None,Stated [Primary Care Provider] - 1-2 days
[2023-10-20] MEDS: IPRATROPIUM-ALBUTEROL 3 ML NEB INHALATION STA (06:25)
[2023-10-20 06:56] VITALS: BP 108/71; PULSE 70; TEMP 98.2
== END 2023-10-20 06:55 | disposition home or self-care (01) ==
LOC: EC 05:17
DX: J45.901 Unspecified asthma with (acute) exacerbation (principal); F17.200 Nicotine dependence, unspecified, uncomplicated
CPT/HCPCS: 94640; 99284; 99406

== ENCOUNTER 2024-01-14 22:04 | Emergency (ER) | payer OTHER ==
[2024-01-14 22:22] VITALS: RESP 18; TEMP 97.7
--- NOTE | 2024-01-14 22:26 | ED ---
General Adult HPI - General Chief complaint: Shortness of Breath Stated complaint: ELVIRA Time Seen by Provider: 01/14/24 22:25 Source: patient Mode of arrival: ambulatory Limitations: no limitations - History of Present Illness Initial comments: 38-year-old male with history of asthma presenting to complaint of shortness of breath. Patient admits to cough and mild congestion. No chest pain. No sore throat or ear fullness. No nausea, vomiting, abdominal pain. No recent injury or trauma. He does not currently have an albuterol inhaler at home. No di zziness or lightheadedness. - Related Data Home Medications Medication Instructions Recorded Confirmed Acetaminophen Tab [Tylenol Tab] 1,000 mg PO Q6H PRN 09/27/22 09/27/22 Previous Rx's Medication Instructions Recorded Albuterol Sulfate [Albuterol 2 puff PO Q6H #8.5 gm 09/27/22 Sulfate Hfa] Doxycycline Hyclate 100 mg PO BID 5 Days #10 capsule 09/27/22 Albuterol Inhaler [Ventolin Hfa 2 puff INHALATION RT-QID PRN #1 12/09/22 Inhaler] each Fluticasone Propion/Salmeterol 2 puff INHALATION BID #1 each 12/09/22 [Advair Hfa 230-21 Mcg Inhaler] Montelukast [Singulair] 10 mg PO DAILY 30 Days #30 tab 12/09/22 predniSONE [Deltasone] 40 mg PO DAILY 5 Days #10 tab 12/09/22 Albuterol Inhaler [Ventolin Hfa 1 - 2 puff INHALATION Q6H PRN #1 02/10/23 Inhaler] each predniSONE 50 mg PO DAILY #5 tab 02/10/23 Albuterol Inhaler [Ventolin Hfa 1 - 2 puff INHALATION Q6H PRN #1 05/09/23 Inhaler] each predniSONE 50 mg PO DAILY #5 tab 05/09/23 Albuterol Sulfate [Albuterol 1 - 2 puff PO Q4-6H PRN #8.5 gm 10/20/23 Sulfate Hfa] predniSONE 50 mg PO DAILY 5 Days #5 tab 10/20/23 Albuterol Sulfate [Albuterol 1 puff PO Q4-6H PRN #8.5 gm 01/15/24 Sulfate Hfa] predniSONE [Deltasone] 60 mg PO DAILY 5 Days #15 tab 01/15/24 Allergies Allergy/AdvReac Type Severity Reaction Status Date / Time No Known Allergies Allergy Verified 01/14/24 22:22 Review of Systems ROS Statement: Those systems with pertinent positive or pertinent negative responses have been documented in the HPI. ROS Other: All systems not noted in ROS Statement are negative. Past Medical History Past Medical History: Asthma History of Any Multi-Drug Resistant Organisms: None Reported Past Surgical History: No Surgical Hx Reported Past Psychological History: Schizophrenia Smoking Status: Former smoker Past Alcohol Use History: Daily Past Drug Use History: Marijuana General Exam - General Exam Comments Initial Comments: Visual Physical Exam Vital signs reviewed General: Well-appearing, nontoxic, no acute distress. Head: Normocephalic, atraumatic Eyes: PERRLA, EOMI ENT: Airway patent Chest: Nonlabored breathing Skin: No visual rash, normal skin tone Neuro: Alert and oriented 3 Musculoskeletal: No gross abnormalities Limitations: no limitations General appearance: alert, in no apparent distress Head exam: Present: atraumatic, normocephalic, normal inspection Eye exam: Present: normal appearance, EOMI Neck exam: Present: normal inspection. Absent: meningismus Respiratory exam: Present: wheezes. Absent: respiratory distress, rales, rhonchi, stridor Cardiovascular Exam: Present: regular rate, normal rhythm, normal heart sounds. Absent: systolic murmur, diastolic murmur, rubs, gallop, clicks Neurological exam: Present: alert, oriented X3 Psychiatric exam: Present: normal affect, normal mood Skin exam: Present: warm, dry Course Vital Signs 01/14/24 01/15/24 01/15/24 22:20 00:29 00:48 Temperature 97.7 F Pulse Rate 70 70 Respiratory 18 18 Rate Blood Pressure 105/70 O2 Sat by Pulse 97 Oximetry 01/15/24 01/15/24 00:51 01:16 Temperature Pulse Rate 77 65 Respiratory 18 Rate Blood Pressure 110/54 O2 Sat by Pulse 98 Oximetry Medical Decision Making - Medical Decision Making I performed the quick note portion of this visit, electronically signed Todd Andrade PA-C 38-year-old male presenting with chief complaint of shortness of breath. History of asthma. On auscultation wheezes are appreciated. X-ray shows no acute process and he is negative for COVID flu and RSV. He is given DuoNeb breathing treatment and prednisone. On reassessment he reports improvement in his symptoms. He does not currently have an albuterol inhaler, albuterol inhaler and 5-day course of prednisone are sent to his pharmacy. Educated on pat adrian's findings and management plan. Discharged. Follow-up with PCP. Report back to ER with any new or worsening symptoms. Discussed return parameters and answered all questions. Patient conveyed verbal understanding and agreed to the plan. I discussed this case in detail with my attending Dr. Everett Was pt. sent in by a medical professional or institution (, PA, RETOUCHER, urgent care, hospital, or fdc...) When possible be specific @ -No Did you speak to anyone other than the patient for history (EMS, parent, family, police, friend...)? What history was obtained from this source @ -No Did you review nursing and triage notes (agree or disagree)? Why? @ -I reviewed and agree with nursing and triage notes Were old charts reviewed (outside hosp., previous admission, EMS record, old EKG, old radiological studies, urgent care reports/EKG's, fdc records)? Report findings @ -No old charts were reviewed Differential Diagnosis (chest pain, altered mental status, abdominal pain women, abdominal pain men, vaginal bleeding, weakness, fever, dyspnea, syncope, headache, dizziness, GI bleed, back pain, seizure, CVA, palpatations, mental health, musculoskeletal)? @ -MDM Differential Dyspnea: Coronary syndrome, arrhythmia, tamponade, asthma, COPD, pulmonary embolism, pneumonia, pneumothorax, pulmonary effusion, anaphylaxis, diabetic ketoacidosis, flailed chest, pulmonary contusion, diaphragmatic rupture, anemia, neuromuscular this is not meant to be an all-inclusive list. EKG interpreted by me (3pts min.). @ -As above X-rays interpreted by me (1pt min.). @ -Chest x-ray shows no acute process CT interpreted by me (1pt min.). @ -None done U/S interpreted by me (1pt. min.). @ -None done What testing was considered but not performed or refused? (CT, X-rays, U/S, labs)? Why? @ -None What meds were considered but not given or refused? Why? @ -None Did you discuss the management of the patient with other professionals (professionals i.e. , PA, RETOUCHER, lab, RT, psych nurse, social work specialist, hyperbaric technologist, teacher, navy senior officer, window caser)? Give summary @ -No Was smoking cessation discussed for >3mins.? @ -No Was critical care preformed (if so, how long)? @ -No Were there social determinants of health that impacted care today? How? (Homelessness, low income, unemployed, alcoholism, drug addiction, transportation, low edu. Level, literacy, decrease access to med. care, fpc, rehab)? @ -No Was there de-escalation of care discussed even if they declined (Discuss DNR or withdrawal of care, Hospice)? DNR status @ -No What co-morbidities impacted this encounter? (DM, HTN, Smoking, COPD, CAD, Cancer, CVA, ARF, Chemo, Hep., AIDS, mental health diagnosis, sleep apnea, morbid obesity)? @ -Asthma Was patient admitted / discharged? Hospital course, mention meds given and route, prescriptions, significant lab abnormalities, going to OR and other pertinent info. @ -Discharge, see above for details Undiagnosed new problem with uncertain prognosis? @ -No Drug Therapy requiring intensive monitoring for toxicity (Heparin, Nitro, Insulin, Cardizem)? @ -No Were any procedures done? @ -No Diagnosis/symptom? @ -Asthma with acute exacerbation Acute, or Chronic, or Acute on Chronic? @ -Acute on chronic Uncomplicated (without systemic symptoms) or Complicated (systemic symptoms)? @ -Uncomplicated Side effects of treatment? @ -No Exacerbation, Progression, or Severe Exacerbation? @ -Exacerbation Poses a threat to life or bodily function? How? (Chest pain, [place], CA, pneumonia, PE, COPD, DKA, ARF, appy, cholecystitis, CVA, Diverticulitis, Homicidal, Suicidal, threat to staff... and all critical care pts) @ -Potential if not properly treated - Lab Data Lab Results 01/14/24 Range/Units 22:22 Influenza Type A (PCR) Not Detected (Not Detectd) Influenza Type B (PCR) Not Detected (Not Detectd) RSV (PCR) Not Detected (Not Detectd) SARS-CoV-2 (PCR) Not Detected (Not Detectd) Disposition Clinical Impression: Asthma with acute exacerbation Disposition: HOME SELF-CARE Condition: Good Instructions (If sedation given, give patient instructions): Asthma (ED) Additional Instructions: Follow-up with PCP, suggestion provided. Report back to ER with any new or worsening symptoms. Take medication as prescribed. Prescriptions: Albuterol Sulfate [Albuterol Sulfate Hfa] 1 puff PO Q4-6H PRN #8.5 gm PRN Reason: Shortness Of Breath predniSONE [Deltasone] 60 mg PO DAILY 5 Days #15 tab Is patient prescribed a controlled substance at d/c from ED?: No Referrals: None,Stated [Primary Care Provider] - 1-2 days Mamta Valencia MD [STAFF PHYSICIAN] - 1-2 days Time of Disposition: 01:06
--- NOTE | 2024-01-14 23:44 | XR ---
EXAM: XR Chest, 2 Views CLINICAL HISTORY: ITS.REASON XR Reason: cough TECHNIQUE: Frontal and lateral views of the chest. COMPARISON: No relevant prior studies available. FINDINGS: Lungs: Unremarkable. No consolidation. Pleural space: Unremarkable. No pneumothorax. Heart: Unremarkable. No cardiomegaly. Mediastinum: Unremarkable. Normal mediastinal contour. Bones/joints: Unremarkable. No acute fracture. IMPRESSION: Normal chest x-rays.
[2024-01-15] MEDS: IPRATROPIUM-ALBUTEROL 3 ML NEB INHALATION STA (00:45)
[2024-01-15] MEDS: methylPREDNISolone SOD SUCCI 125 MG/2 ML VIAL IM ONE (00:45)
[2024-01-15] MEDS: predniSONE 20 MG TAB PO STA (01:16)
[2024-01-15 01:17] VITALS: BP 110/54; PULSE 65
== END 2024-01-15 01:32 | disposition home or self-care (01) ==
LOC: EC 22:04
DX: R06.00 Dyspnea, unspecified
CPT/HCPCS: 71046; 87636; 94640; 99285

== ENCOUNTER 2024-03-22 09:08 | Emergency (ER) | payer OTHER ==
[2024-03-22 09:19] VITALS: RESP 18
[2024-03-22] MEDS: predniSONE 20 MG TAB PO STA (09:41)
--- NOTE | 2024-03-22 09:56 | ED ---
General Adult HPI - General Chief complaint: Upper Respiratory Infection Stated complaint: cough Time Seen by Provider: 03/22/24 09:21 Source: patient, RN notes reviewed, old records reviewed Mode of arrival: ambulatory Limitations: no limitations - History of Present Illness Initial comments: Patient is a 39-year-old male with asthma who presents emergency department complaining of cough, congestion for the last week. States symptoms or not improving. He is having a productive cough of yellowish sputum. Denies any chest pain, nausea, vomiting, diarrhea. No known sick contacts. Unknown in regards to fevers. Presents for further evaluation at this time. - Related Data Home Medications Medication Instructions Recorded Confirmed Acetaminophen Tab [Tylenol Tab] 1,000 mg PO Q6H PRN 09/27/22 09/27/22 Previous Rx's Medication Instructions Recorded Albuterol Sulfate [Albuterol 2 puff PO Q6H #8.5 gm 09/27/22 Sulfate Hfa] Doxycycline Hyclate 100 mg PO BID 5 Days #10 capsule 09/27/22 Albuterol Inhaler [Ventolin Hfa 2 puff INHALATION RT-QID PRN #1 12/09/22 Inhaler] each Fluticasone Propion/Salmeterol 2 puff INHALATION BID #1 each 12/09/22 [Advair Hfa 230-21 Mcg Inhaler] Montelukast [Singulair] 10 mg PO DAILY 30 Days #30 tab 12/09/22 predniSONE [Deltasone] 40 mg PO DAILY 5 Days #10 tab 12/09/22 Albuterol Inhaler [Ventolin Hfa 1 - 2 puff INHALATION Q6H PRN #1 02/10/23 Inhaler] each predniSONE 50 mg PO DAILY #5 tab 02/10/23 Albuterol Inhaler [Ventolin Hfa 1 - 2 puff INHALATION Q6H PRN #1 05/09/23 Inhaler] each predniSONE 50 mg PO DAILY #5 tab 05/09/23 Albuterol Sulfate [Albuterol 1 - 2 puff PO Q4-6H PRN #8.5 gm 10/20/23 Sulfate Hfa] predniSONE 50 mg PO DAILY 5 Days #5 tab 10/20/23 Albuterol Sulfate [Albuterol 1 puff PO Q4-6H PRN #8.5 gm 01/15/24 Sulfate Hfa] predniSONE [Deltasone] 60 mg PO DAILY 5 Days #15 tab 01/15/24 Albuterol Inhaler [Ventolin Hfa 2 puff INHALATION QID #8 gm 03/22/24 Inhaler] Azithromycin [Zithromax] 250 mg PO DAILY 4 Days #4 tab 03/22/24 predniSONE [Deltasone] 40 mg PO DAILY 4 Days #8 tab 03/22/24 Allergies Allergy/AdvReac Type Severity Reaction Status Date / Time No Known Allergies Allergy Verified 03/22/24 09:14 Review of Systems ROS Statement: Those systems with pertinent positive or pertinent negative responses have been documented in the HPI. Review of Systems: CONST: Denies fever EYES: Denies blurry vision ENT: Denies nasal congestion C/V: Denies Chest pain RESP: Endorses cough, congestion GI: Denies abdominal pain : Denies dysuria SKIN: Denies rash. MSK: Denies joint pain. NEURO: Denies headache ROS Other: All systems not noted in ROS Statement are negative. Past Medical History Past Medical History: Asthma History of Any Multi-Drug Resistant Organisms: None Reported Past Surgical History: No Surgical Hx Reported Past Psychological History: Schizophrenia Smoking Status: Former smoker Past Alcohol Use History: Daily Past Drug Use History: Marijuana General Exam - General Exam Comments Initial Comments: General: Appears in no acute distress. HEAD: Normal with no signs of head trauma. EYES: EOMI ENT: Hearing grossly intact, normal oropharynx. RESPIRATORY: Mild bilateral end expiratory wheezing. No hypoxia. No increased work of breathing. C/V: Regular rate and rhythm. S1 and S2 auscultated, peripheral pulses 2+ and intact throughout ABD: Abd is soft, nontender, nondistended EXT: No obvious deformity SKIN: No rashes or lesions observed on exposed skin. NEURO: Alert and oriented x 4. Limitations: no limitations Course Vital Signs 03/22/24 03/22/24 03/22/24 09:14 09:30 10:47 Temperature 98.3 F Pulse Rate 73 66 Respiratory 18 18 Rate Blood Pressure 119/77 O2 Sat by Pulse 96 Oximetry 03/22/24 03/22/24 10:55 11:43 Temperature 98.1 F Pulse Rate 63 71 Respiratory 18 Rate Blood Pressure 120/82 O2 Sat by Pulse 97 Oximetry Medical Decision Making - Medical Decision Making Was pt. sent in by a medical professional or institution (Dr., PA, EXTRACTION MACHINE OPERATOR, urgent care, hospital, or half-way...) When possible be specific @ -No Did you speak to anyone other than the patient for history (EMS, parent, family, police, friend...)? What history was obtained from this source @ -No Did you review nursing and triage notes (agree or disagree)? Why? @ -I reviewed and agree with nursing and triage notes Were old charts reviewed (outside hosp., previous admission, EMS record, old EKG, old radiological studies, urgent care reports/EKG's, half-way records)? Report findings @ -Reviewed prior visits with most recent visit from January 2024 when patient presented with similar complaints at that time. Negative chest x-ray and viral swabs at that time. Differential Diagnosis (chest pain, altered mental status, abdominal pain women, abdominal pain men, vaginal bleeding, weakness, fever, dyspnea, syncope, headache, dizziness, GI bleed, back pain, seizure, CVA, palpatations, mental health, musculoskeletal)? @ -Asthma, COVID, flu, RSV, pneumonia. This list is not all inclusive. EKG interpreted by me (3pts min.). @ -None done X-rays interpreted by me (1pt min.). @ -Chest x-ray reveals no obvious acute cardiopulmonary process. CT interpreted by me (1pt min.). @ -None done U/S interpreted by me (1pt. min.). @ -None done What testing was considered but not performed or refused? (CT, X-rays, U/S, labs)? Why? @ -None What meds were considered but not given or refused? Why? @ -None Did you discuss the management of the patient with other professionals (professionals i.e. KANE Jay, EXTRACTION MACHINE OPERATOR, lab, RT, psych nurse, social sciences professor, hearing health technician, teacher, international first officer, case checker)? Give summary @ -No Was smoking cessation discussed for >3mins.? @ -No Was critical care preformed (if so, how long)? @ -No Were there social determinants of health that impacted care today? How? (Homelessness, low income, unemployed, alcoholism, drug addiction, transportation, low edu. Level, literacy, decrease access to med. care, nursing home, rehab)? @ -No Was there de-escalation of care discussed even if they declined (Discuss DNR or withdrawal of care, Hospice)? DNR status @ -No What co-morbidities impacted this encounter? (DM, HTN, Smoking, COPD, CAD, Cancer, CVA, ARF, Chemo, Hep., AIDS, mental health diagnosis, sleep apnea, morbid obesity)? @ -None Was patient admitted / discharged? Hospital course, mention meds given and route, prescriptions, significant lab abnormalities, going to OR and other pertinent info. @ -Based on the patient's presentation and physical exam, presents emergency department complaining of cough, congestion for 1 week. Has a history of asthma. We will obtain viral swabs as well as a chest x-ray. Vitals are currently within acceptable limits. Patient will be administered oral prednisone and a breathing treatment. Patient was in agreement this plan. Chest x-ray unremarkable. Viral swabs negative. I discussed the results with the patient. He is feeling improved. Wheezing is improved. Patient will be discharged home at this time. He was in agreement this plan. He will be given azithromycin for tracheobronchitis as well as prescription for azithromycin, prednisone, albuterol inhaler. Strict return precautions discussed. I will provide the patient with a prescription for prednisone, azithromycin, albuterol. I instructed the patient to follow up with their PCP in the next 1-3 days. I explained that the patient should return to the emergency department if they experience any worsening symptoms. Strict return precautions were discussed with the patient. The patient expressed understanding of these instructions. I answered all questions that the patient had. The patient was discharged home in good condition with their prescriptions and follow up information. Undiagnosed new problem with uncertain prognosis? @ -No Drug Therapy requiring intensive monitoring for toxicity (Heparin, Nitro, Insulin, Cardizem)? @ -No Were any procedures done? @ -No Diagnosis/symptom? @ -Asthma, tracheobronchitis Acute, or Chronic, or Acute on Chronic? @ -Acute Uncomplicated (without systemic symptoms) or Complicated (systemic symptoms)? @ -uncomplicated Side effects of treatment? @ -None Exacerbation, Progression, or Severe Exacerbation] @ -No Poses a threat to life or bodily function? @ -Unlikely - Lab Data Lab Results 03/22/24 Range/Units 09:33 Influenza Type A (PCR) Not Detected (Not Detectd) Influenza Type B (PCR) Not Detected (Not Detectd) RSV (PCR) Not Detected (Not Detectd) SARS-CoV-2 (PCR) Not Detected (Not Detectd) Disposition Clinical Impression: Asthma, Tracheobronchitis Disposition: HOME SELF-CARE Condition: Good Instructions (If sedation given, give patient instructions): Asthma (ED), Acute Bronchitis (ED) Prescriptions: predniSONE [Deltasone] 40 mg PO DAILY 4 Days #8 tab Albuterol Inhaler [Ventolin Hfa Inhaler] 2 puff INHALATION QID #8 gm Azithromycin [Zithromax] 250 mg PO DAILY 4 Days #4 tab Is patient prescribed a controlled substance at d/c from ED?: No Referrals: None,Stated [Primary Care Provider] - 1-2 days Time of Disposition: 11:32
[2024-03-22] MEDS: IPRATROPIUM-ALBUTEROL 3 ML NEB INHALATION STA (10:47)
--- NOTE | 2024-03-22 10:52 | XR ---
2 view chest HISTORY: Cough. COMPARISON: 01/14/2024. TECHNIQUE: PA and lateral views chest obtained FINDINGS: The lungs are clear and there is no airspace consolidation or abnormal interstitial density. There is no pleural effusion, pleural thickening or pneumothorax. The heart and pulmonary vasculature are normal. The osseous structures are intact. IMPRESSION: No acute cardiopulmonary disease with no interval change. [facility], Workstation: [facility], 03/22/2024 10:50 AM
[2024-03-22] MEDS: AZITHROMYCIN 500 MG TAB PO STA (11:40)
[2024-03-22 11:45] VITALS: BP 120/82; PULSE 71; TEMP 98.1
== END 2024-03-22 11:45 | disposition home or self-care (01) ==
LOC: EC 09:08
DX: J45.909 Unspecified asthma, uncomplicated (principal); Z87.891 Personal history of nicotine dependence
CPT/HCPCS: 94640; 87636; 71046; 99284; J7512

== ENCOUNTER 2024-04-15 21:03 | Emergency (ER) | payer OTHER ==
[2024-04-15 21:07] VITALS: RESP 16; TEMP 98.2
[2024-04-15] MEDS: IBUPROFEN 600 MG TAB PO STA (21:36)
[2024-04-15] MEDS: LIDOCAINE 4% PATCH TOPICAL ONE (21:37)
--- NOTE | 2024-04-15 22:01 | XR ---
EXAMINATION TYPE: XR lumbar spine 2 or 3V DATE OF EXAM: 04/15/2024 9:53 PM COMPARISON: None available. CLINICAL INDICATION: Male, 39 years old with history of injury; [facility] TECHNIQUE: XR lumbar spine 2 or 3V - Frontal, lateral and coned in L5-S1 lateral views of the spine. FINDINGS: No evidence of any acute osseous pathology. No evidence of loss of vertebral body height i s seen. There is normal alignment of the lumbar vertebral bodies. Intervertebral disc spaces. Grossly maintained. Possible mild disc height loss at L1-L2. Mild facet arthropathy, most as L4-5 and L5-S1. IMPRESSION: No radiographic evidence of an acute fracture or traumatic subluxation. [facility], , 04/15/2024 9:59 PM
[2024-04-15 22:25] LABS: Appearance,Urine Clear (Clear); Bilirubin,Urine Negative (Negative); Blood,Urine Negative (Negative); Color,Urine Yellow; Glucose,Urine (UA) Negative (Negative); Ketones,Urine Negative (Negative); Leukocyte Esterase,Urine Negative (Negative); Nitrite,Urine Negative (Negative); PH, Urine 6.5 (5.0-8.0); Protein,Urine Negative (Negative); Specific Gravity,Urine 1.025 (1.001-1.035)
--- NOTE | 2024-04-15 22:30 | ED ---
Back Pain HPI - General Chief Complaint: Back Pain/Injury Stated Complaint: Back pain Time Seen by Provider: 04/15/24 21:09 Source: patient Limitations: no limitations - History of Present Illness Initial Comments: 39-year-old male presenting with chief complaint of back pain. Patient is experiencing left-sided back pain. This started after he jumped off the top bunk of a bed. He is having pain with range of motion and certain positions. No dysuria or hematuria. No fevers or chills. No nausea or vomiting. No loss of bowel or bladder control or saddle paresthesia. This just started today. - Related Data Home Medications Medication Instructions Recorded Confirmed Acetaminophen Tab [Tylenol Tab] 1,000 mg PO Q6H PRN 09/27/22 09/27/22 Previous Rx's Medication Instructions Recorded Albuterol Sulfate [Albuterol 2 puff PO Q6H #8.5 gm 09/27/22 Sulfate Hfa] Doxycycline Hyclate 100 mg PO BID 5 Days #10 capsule 09/27/22 Albuterol Inhaler [Ventolin Hfa 2 puff INHALATION RT-QID PRN #1 12/09/22 Inhaler] each Fluticasone Propion/Salmeterol 2 puff INHALATION BID #1 each 12/09/22 [Advair Hfa 230-21 Mcg Inhaler] Montelukast [Singulair] 10 mg PO DAILY 30 Days #30 tab 12/09/22 predniSONE [Deltasone] 40 mg PO DAILY 5 Days #10 tab 12/09/22 Albuterol Inhaler [Ventolin Hfa 1 - 2 puff INHALATION Q6H PRN #1 02/10/23 Inhaler] each predniSONE 50 mg PO DAILY #5 tab 02/10/23 Albuterol Inhaler [Ventolin Hfa 1 - 2 puff INHALATION Q6H PRN #1 05/09/23 Inhaler] each predniSONE 50 mg PO DAILY #5 tab 05/09/23 Albuterol Sulfate [Albuterol 1 - 2 puff PO Q4-6H PRN #8.5 gm 10/20/23 Sulfate Hfa] predniSONE 50 mg PO DAILY 5 Days #5 tab 10/20/23 Albuterol Sulfate [Albuterol 1 puff PO Q4-6H PRN #8.5 gm 01/15/24 Sulfate Hfa] predniSONE [Deltasone] 60 mg PO DAILY 5 Days #15 tab 01/15/24 Albuterol Inhaler [Ventolin Hfa 2 puff INHALATION QID #8 gm 03/22/24 Inhaler] Azithromycin [Zithromax] 250 mg PO DAILY 4 Days #4 tab 03/22/24 predniSONE [Deltasone] 40 mg PO DAILY 4 Days #8 tab 03/22/24 Cyclobenzaprine [Flexeril] 10 mg PO TID PRN #15 tab 04/15/24 Allergies Allergy/AdvReac Type Severity Reaction Status Date / Time No Known Allergies Allergy Verified 04/15/24 21:07 Review of Systems ROS Statement: Those systems with pertinent positive or pertinent negative responses have been documented in the HPI. ROS Other: All systems not noted in ROS Statement are negative. Past Medical History Past Medical History: Asthma History of Any Multi-Drug Resistant Organisms: None Reported Past Surgical History: No Surgical Hx Reported Past Psychological History: Schizophrenia Smoking Status: Former smoker Past Alcohol Use History: Daily Past Drug Use History: Marijuana General Exam Limitations: no limitations General appearance: alert, in no apparent distress Head exam: Present: atraumatic, normocephalic, normal inspection Eye exam: Present: normal appearance, EOMI Neck exam: Present: normal inspection. Absent: meningismus Respiratory exam: Present: normal lung sounds bilaterally. Absent: respiratory distress, wheezes, rales, rhonchi, stridor Cardiovascular Exam: Present: regular rate, normal rhythm, normal heart sounds. Absent: systolic murmur, diastolic murmur, rubs, gallop, clicks Back exam: Present: normal inspection. Absent: tenderness Neurological exam: Present: alert, oriented X3 Psychiatric exam: Present: normal affect, normal mood Skin exam: Present: warm, dry Course Vital Signs 04/15/24 04/15/24 21:04 22:43 Temperature 98.2 F Pulse Rate 66 75 Respiratory 16 16 Rate Blood Pressure 121/80 120/74 O2 Sat by Pulse 97 100 Oximetry Medical Decision Making - Medical Decision Making Was pt. sent in by a medical professional or institution (, PA, HEEL SANDER RUBBER, urgent care, hospital, or fdc...) When possible be specific @ -No Did you speak to anyone other than the patient for history (EMS, parent, family, police, friend...)? What history was obtained from this source @ -No Did you review nursing and triage notes (agree or disagree)? Why? @ -I reviewed and agree with nursing and triage notes Were old charts reviewed (outside hosp., previous admission, EMS record, old EKG, old radiological studies, urgent care reports/EKG's, fdc records)? Report findings @ -No old charts were reviewed Differential Diagnosis (chest pain, altered mental status, abdominal pain women, abdominal pain men, vaginal bleeding, weakness, fever, dyspnea, syncope, headache, dizziness, GI bleed, back pain, seizure, CVA, palpatations, mental health, musculoskeletal)? @ - MDM Differential Back Pain: Strain, zoster, cauda equina syndrome, epidural abscess, vertebral osteomyelitis, discitis, fracture, subluxation, disc herniation, DJD, spinal stenosis, dissection, AAA, pancreatitis, peptic ulcer disease, pyelonephritis, kidney stone this is not meant to be an all-inclusive list. EKG interpreted by me (3pts min.). @ -As above X-rays interpreted by me (1pt min.). @ -X-ray shows no radiographic evidence of an acute fracture or traumatic subluxation CT interpreted by me (1pt min.). @ -None done U/S interpreted by me (1pt. min.). @ -None done What testing was considered but not performed or refused? (CT, X-rays, U/S, lab s)? Why? @ -None What meds were considered but not given or refused? Why? @ -None Did you discuss the management of the patient with other professionals (professionals i.e. , PA, HEEL SANDER RUBBER, lab, RT, psych nurse, social work administrator, wine maker, teacher, ict customer support officer, high risk case manager)? Give summary @ -No Was smoking cessation discussed for >3mins.? @ -No Was critical care preformed (if so, how long)? @ -No Were there social determinants of health that impacted care today? How? (Homelessness, low income, unemployed, alcoholism, drug addiction, transportation, low edu. Level, literacy, decrease access to med. care, group home, rehab)? @ -No Was there de-escalation of care discussed even if they declined (Discuss DNR or withdrawal of care, Hospice)? DNR status @ -No What co-morbidities impacted this encounter? (DM, HTN, Smoking, COPD, CAD, Cancer, CVA, ARF, Chemo, Hep., AIDS, mental health diagnosis, sleep apnea, morbid obesity)? @ -None Was patient admitted / discharged? Hospital course, mention meds given and route, prescriptions, significant lab abnormalities, going to OR and other pertinent info. @ -39-year-old male presenting with chief complaint of back pain. Primarily on the left side. Started after he jumped down from the top bunk of a bunk bed today. No red flag symptoms. X-rays negative for acute process. Urine shows no infection or bleeding. Patient is provided with pain medication and educated on today's findings. Educated on supportive management. Discharged. Follow- up with PCP. Report back to ER with any new or worsening symptoms. Discussed return parameters and answered all questions. Patient conveyed verbal understanding and agreed to the plan. I discussed this case in detail with my attending Dr. Everett Undiagnosed new problem with uncertain prognosis? @ -No Drug Therapy requiring intensive monitoring for toxicity (Heparin, Nitro, Insulin, Cardizem)? @ -No Were any procedures done? @ -No Diagnosis/symptom? @ -Mechanical back pain Acute, or Chronic, or Acute on Chronic? @ -Acute Uncomplicated (without systemic symptoms) or Complicated (systemic symptoms)? @ -Uncomplicated Side effects of treatment? @ -No Exacerbation, Progression, or Severe Exacerbation? @ -No Poses a threat to life or bodily function? How? (Chest pain, [place], [place], pneumonia, PE, COPD, DKA, ARF, appy, cholecystitis, CVA, Diverticulitis, Homicidal, Suicidal, threat to staff... and all critical care pts) @ -Low likelihood - Lab Data Lab Results 04/15/24 Range/Units 22:14 Urine Color Yellow Urine Appearance Clear (Clear) Urine pH 6.5 (5.0-8.0) Ur Specific [place] 1.025 (1.001-1.035) Urine Protein Negative (Negative) Urine Glucose (UA) Negative (Negative) Urine Ketones Negative (Negative) Urine Blood Negative (Negative) Urine Nitrite Negative (Negative) Urine Bilirubin Negative (Negative) Urine Urobilinogen 2.0 (<2.0) mg/dL Ur Leukocyte Esterase Negative (Negative) Disposition Clinical Impression: Muscle strain, Mechanical back pain Disposition: HOME SELF-CARE Condition: Good Instructions (If sedation given, give patient instructions): Acute Low Back Pain (ED) Additional Instructions: Follow-up with PCP. Report back to ER with any new or worsening symptoms. Take Motrin and Tylenol as needed for pain control. Do not take cyclobenzaprine before driving or operating heavy machinery as it may cause drowsiness. Prescriptions: Cyclobenzaprine [Flexeril] 10 mg PO TID PRN #15 tab PRN Reason: Spasms Is patient prescribed a controlled substance at d/c from ED?: No Referrals: None,Stated [Primary Care Provider] - 1-2 days [facility] [NON-STAFF] - 1-2 days Time of Disposition: 22:29
[2024-04-15] MEDS: CYCLOBENZAPRINE 10MG STARTER 3 TAB BTL PO STA (22:41)
[2024-04-15 22:44] VITALS: BP 120/74; PULSE 75
== END 2024-04-15 22:43 | disposition home or self-care (01) ==
LOC: EC 21:03
DX: S39.012A Strain of muscle, fascia and tendon of lower back, initial encounter (principal); Z87.891 Personal history of nicotine dependence; W06.XXXA Fall from bed, initial encounter
CPT/HCPCS: 72100; 81003; 99284

== ENCOUNTER 2024-08-02 20:29 | Emergency (ER) | payer OTHER ==
--- NOTE | 2024-08-03 01:25 | CT ---
EXAM: CT Cervical Spine Without Intravenous Contrast CLINICAL HISTORY: Neck pain TECHNIQUE: Axial computed tomography images of the cervical spine without intravenous contrast. CTDI is 10.1 mGy and DLP is 257.3 mGy-cm. This CT exam was performed using one or more of the following dose reduction techniques: automated exposure control, adjustment of the mA and/or kV according to patient size, and/or use of iterative reconstruction technique. COMPARISON: No relevant prior studies available. FINDINGS: Vertebrae: No acute fracture. Maintenance of height of the vertebral bodies. No subluxation. Mild reversal of the normal cervical lordosis. Discs/spinal canal/neural foramina: No acute abnormality. No spinal canal stenosis. Soft tissues: Prevertebral soft tissues are unremarkable. IMPRESSION: Mild reversal of the normal cervical lordosis, most commonly seen with muscle spasm or positioning.
--- NOTE | 2024-08-03 01:48 | ED ---
General Adult HPI - General Chief complaint: Neck Pain/Injury Stated complaint: neck pain Time Seen by Provider: 08/02/24 21:43 Source: patient Mode of arrival: ambulatory Limitations: no limitations - History of Present Illness Initial comments: 39-year-old male presenting with chief complaint of neck pain. This has been ongoing for about 3 to 4 weeks. Its primarily on the right side. States initially he thought he was sleeping wrong but now is concerned that the pain will not go away. He denies any other injury or trauma. States that he does get some tingling in his arm that eventually goes away. No numbness or loss of range of motion. He does have increased pain with range of motion of the neck. No fever. No vomiting. No headache. - Related Data Home Medications Medication Instructions Recorded Confirmed Acetaminophen Tab [Tylenol Tab] 1,000 mg PO Q6H PRN 09/27/22 09/27/22 Previous Rx's Medication Instructions Recorded Albuterol Sulfate [Albuterol 2 puff PO Q6H #8.5 gm 09/27/22 Sulfate Hfa] Doxycycline Hyclate 100 mg PO BID 5 Days #10 capsule 09/27/22 Albuterol Inhaler [Ventolin Hfa 2 puff INHALATION RT-QID PRN #1 12/09/22 Inhaler] each Fluticasone Propion/Salmeterol 2 puff INHALATION BID #1 each 12/09/22 [Advair Hfa 230-21 Mcg Inhaler] Montelukast [Singulair] 10 mg PO DAILY 30 Days #30 tab 12/09/22 predniSONE [Deltasone] 40 mg PO DAILY 5 Days #10 tab 12/09/22 Albuterol Inhaler [Ventolin Hfa 1 - 2 puff INHALATION Q6H PRN #1 02/10/23 Inhaler] each predniSONE 50 mg PO DAILY #5 tab 02/10/23 Albuterol Inhaler [Ventolin Hfa 1 - 2 puff INHALATION Q6H PRN #1 05/09/23 Inhaler] each predniSONE 50 mg PO DAILY #5 tab 05/09/23 Albuterol Sulfate [Albuterol 1 - 2 puff PO Q4-6H PRN #8.5 gm 10/20/23 Sulfate Hfa] predniSONE 50 mg PO DAILY 5 Days #5 tab 10/20/23 Albuterol Sulfate [Albuterol 1 puff PO Q4-6H PRN #8.5 gm 01/15/24 Sulfate Hfa] predniSONE [Deltasone] 60 mg PO DAILY 5 Days #15 tab 01/15/24 Albuterol Inhaler [Ventolin Hfa 2 puff INHALATION QID #8 gm 03/22/24 Inhaler] Azithromycin [Zithromax] 250 mg PO DAILY 4 Days #4 tab 03/22/24 predniSONE [Deltasone] 40 mg PO DAILY 4 Days #8 tab 03/22/24 Cyclobenzaprine [Flexeril] 10 mg PO TID PRN #15 tab 04/15/24 Cyclobenzaprine [Flexeril] 10 mg PO TID PRN #15 tab 08/03/24 Allergies Allergy/AdvReac Type Severity Reaction Status Date / Time No Known Allergies Allergy Verified 04/15/24 21:07 Review of Systems ROS Statement: Those systems with pertinent positive or pertinent negative responses have been documented in the HPI. ROS Other: All systems not noted in ROS Statement are negative. Past Medical History Past Medical History: Asthma History of Any Multi-Drug Resistant Organisms: None Reported Past Surgical History: No Surgical Hx Reported Past Psychological History: Schizophrenia Smoking Status: Former smoker Past Alcohol Use History: Daily Past Drug Use History: Marijuana General Exam Limitations: no limitations General appearance: alert, in no apparent distress Head exam: Present: atraumatic, normocephalic, normal inspection Eye exam: Present: normal appearance, EOMI Neck exam: Present: normal inspection, tenderness (Paraspinal muscle tenderness), full ROM. Absent: meningismus Respiratory exam: Absent: respiratory distress Cardiovascular Exam: Present: regular rate Neurological exam: Present: alert, oriented X3 Psychiatric exam: Present: normal affect, normal mood Skin exam: Present: warm, dry, normal color Course Vital Signs 08/02/24 08/03/24 20:51 01:58 Temperature 98 F 97.6 F Pulse Rate 69 67 Respiratory 20 16 Rate Blood Pressure 108/71 90/54 O2 Sat by Pulse 96 97 Oximetry Medical Decision Making - Medical Decision Making Was pt. sent in by a medical professional or institution (, [place], [employer], urgent care, hospital, or halfway...) When possible be specific @ -No Did you speak to anyone other than the patient for history (EMS, parent, family, police, friend...)? What history was obtained from this source @ -No Did you review nursing and triage notes (agree or disagree)? Why? @ -I reviewed and agree with nursing and triage notes Were old charts reviewed (outside hosp., previous admission, EMS record, old EKG, old radiological studies, urgent care reports/EKG's, halfway records)? Report findings @ -No old charts were reviewed Differential Diagnosis (chest pain, altered mental status, abdominal pain women, abdominal pain men, vaginal bleeding, weakness, fever, dyspnea, syncope, headache, dizziness, GI bleed, back pain, seizure, CVA, palpatations, mental health, musculoskeletal)? @ - MDM Differential Back Pain: Strain, zoster, cauda equina syndrome, epidural abscess, vertebral osteomyelitis, discitis, fracture, subluxation, disc herniation, DJD, spinal stenosis, dissection, AAA, pancreatitis, peptic ulcer disease, pyelonephritis, kidney stone… this is not meant to be an all-inclusive list. EKG interpreted by me (3pts min.). @ -As above X-rays interpreted by me (1pt min.). @ -None done CT interpreted by me (1pt min.). @ -CT cervical spine shows mild reversal of the normal cervical lordosis most commonly seen with muscle spasming or positioning U/S interpreted by me (1pt. min.). @ -None done What testing was considered but not performed or refused? (CT, X-rays, U/S, labs)? Why? @ -None What meds were considered but not given or refused? Why? @ -None Did you discuss the management of the patient with other professionals (professionals i.e. , [place], [employer], lab, RT, psych nurse, social service director, supervisor keymodule assembly, teacher, correction officer penitentiary, case management assistant)? Give summary @ -No Was smoking cessation discussed for >3mins.? @ -No Was critical care preformed (if so, how long)? @ -No Were there social determinants of health that impacted care today? How? (Homele ssness, low income, unemployed, alcoholism, drug addiction, transportation, low edu. Level, literacy, decrease access to med. care, intermediate, rehab)? @ -No Was there de-escalation of care discussed even if they declined (Discuss DNR or withdrawal of care, Hospice)? DNR status @ -No What co-morbidities impacted this encounter? (DM, HTN, Smoking, COPD, CAD, Cancer, CVA, ARF, Chemo, Hep., AIDS, mental health diagnosis, sleep apnea, morbid obesity)? @ -None Was patient admitted / discharged? Hospital course, mention meds given and route, prescriptions, significant lab abnormalities, going to OR and other pertinent info. @ -39-year-old male presented with chief complaint of neck pain. No injury or trauma. History and physical examination are conducted. CT shows reversal of the normal lordosis in the neck, most commonly seen with muscle spasming or positioning. Patient was educated on today's findings. Provided with muscle relaxer for home. Follow-up with PCP. Report back to ER with any new or worsening symptoms. Discussed return parameters and answered all questions. Patient conveyed verbal understanding and agreed to the plan. I discussed this case in detail with my attending Dr. Bass Undiagnosed new problem with uncertain prognosis? @ -No Drug Therapy requiring intensive monitoring for toxicity (Heparin, Nitro, Insulin, Cardizem)? @ -No Were any procedures done? @ -No Diagnosis/symptom? @ -Muscle spasm of neck Acute, or Chronic, or Acute on Chronic? @ -Acute Uncomplicated (without systemic symptoms) or Complicated (systemic symptoms)? @ -Uncomplicated Side effects of treatment? @ -No Exacerbation, Progression, or Severe Exacerbation? @ -No Poses a threat to life or bodily function? How? (Chest pain, [place], [place], pneumonia, PE, COPD, DKA, ARF, appy, cholecystitis, CVA, Diverticulitis, Homicidal, Suicidal, threat to staff... and all critical care pts) @ -Low likelihood Disposition Clinical Impression: Muscle spasms of neck Disposition: HOME SELF-CARE Condition: Good Instructions (If sedation given, give patient instructions): Spasmodic Torticollis (ED) Additional Instructions: Follow-up with PCP, suggestions provided. Report back to ER with any new or worsening symptoms. Cyclobenzaprine may cause drowsiness do not take before driving or operating heavy machinery Prescriptions: Cyclobenzaprine [Flexeril] 10 mg PO TID PRN #15 tab PRN Reason: Spasms Is patient prescribed a controlled substance at d/c from ED?: No Referrals: None,Stated [Primary Care Provider] - 1-2 days Forms: Area PCPs Time of Disposition: 01:46
[2024-08-03 02:01] VITALS: BP 90/54; PULSE 67; RESP 16; TEMP 97.6
== END 2024-08-03 01:58 | disposition home or self-care (01) ==
LOC: EC 20:29
DX: M62.838 Other muscle spasm (principal); Z87.891 Personal history of nicotine dependence
CPT/HCPCS: 72125; 99284

== ENCOUNTER 2024-08-21 21:40 | Emergency (ER) | payer OTHER ==
[2024-08-21 21:53] VITALS: BP 101/53; PULSE 100; RESP 18; TEMP 98.2
--- NOTE | 2024-08-21 22:21 | ED ---
Neck Injury/Pain HPI - General Chief Complaint: Neck Pain/Injury Stated Complaint: Neck pain Time Seen by Provider: 08/21/24 22:16 Source: patient, RN notes reviewed Mode of arrival: ambulatory - History of Present Illness Initial Comments: 39-year-old male presenting for neck pain x 3 weeks. Reports a dull, constant pain primarily on the right side of his neck. Denies injury or trauma. Denies headache, fever, vision changes, nausea, vomiting, sore throat. He is tolerating orals well. Admits increased pain with range of motion of the neck. He was seen in the ER for this [address] of the neck was performed which revealed mild reversal of normal cervical lordosis most commonly seen in muscle spasm or positioning. Patient is clearly intoxicated upon examination, admits to drinking 1 beer today. - Related Data Home Medications Medication Instructions Recorded Confirmed Acetaminophen Tab [Tylenol Tab] 1,000 mg PO Q6H PRN 09/27/22 09/27/22 Previous Rx's Medication Instructions Recorded Albuterol Sulfate [Albuterol 2 puff PO Q6H #8.5 gm 09/27/22 Sulfate Hfa] Doxycycline Hyclate 100 mg PO BID 5 Days #10 capsule 09/27/22 Albuterol Inhaler [Ventolin Hfa 2 puff INHALATION RT-QID PRN #1 12/09/22 Inhaler] each Fluticasone Propion/Salmeterol 2 puff INHALATION BID #1 each 12/09/22 [Advair Hfa 230-21 Mcg Inhaler] Montelukast [Singulair] 10 mg PO DAILY 30 Days #30 tab 12/09/22 predniSONE [Deltasone] 40 mg PO DAILY 5 Days #10 tab 12/09/22 Albuterol Inhaler [Ventolin Hfa 1 - 2 puff INHALATION Q6H PRN #1 02/10/23 Inhaler] each predniSONE 50 mg PO DAILY #5 tab 02/10/23 Albuterol Inhaler [Ventolin Hfa 1 - 2 puff INHALATION Q6H PRN #1 05/09/23 Inhaler] each predniSONE 50 mg PO DAILY #5 tab 05/09/23 Albuterol Sulfate [Albuterol 1 - 2 puff PO Q4-6H PRN #8.5 gm 10/20/23 Sulfate Hfa] predniSONE 50 mg PO DAILY 5 Days #5 tab 10/20/23 Albuterol Sulfate [Albuterol 1 puff PO Q4-6H PRN #8.5 gm 01/15/24 Sulfate Hfa] predniSONE [Deltasone] 60 mg PO DAILY 5 Days #15 tab 01/15/24 Albuterol Inhaler [Ventolin Hfa 2 puff INHALATION QID #8 gm 03/22/24 Inhaler] Azithromycin [Zithromax] 250 mg PO DAILY 4 Days #4 tab 03/22/24 predniSONE [Deltasone] 40 mg PO DAILY 4 Days #8 tab 03/22/24 Cyclobenzaprine [Flexeril] 10 mg PO TID PRN #15 tab 04/15/24 Cyclobenzaprine [Flexeril] 10 mg PO TID PRN #15 tab 08/03/24 Allergies Allergy/AdvReac Type Severity Reaction Status Date / Time No Known Allergies Allergy Verified 08/21/24 21:53 Review of Systems ROS Statement: Those systems with pertinent positive or pertinent negative responses have been documented in the HPI. ROS Other: All systems not noted in ROS Statement are negative. Past Medical History Past Medical History: Asthma History of Any Multi-Drug Resistant Organisms: None Reported Past Surgical History: No Surgical Hx Reported Past Psychological History: Schizophrenia Smoking Status: Former smoker Past Alcohol Use History: Daily Past Drug Use History: Marijuana General Exam General appearance: in no apparent distress, appears intoxicated Eye exam: Present: normal appearance, PERRL, EOMI. Absent: scleral icterus, conjunctival injection, periorbital swelling ENT exam: Present: normal exam, normal oropharynx, mucous membranes moist Neck exam: Present: normal inspection, full ROM. Absent: tenderness, meningismus, lymphadenopathy, thyromegaly Respiratory exam: Present: normal lung sounds bilaterally. Absent: respiratory distress, wheezes, rales, rhonchi, stridor Cardiovascular Exam: Present: regular rate, normal rhythm, normal heart sounds. Absent: systolic murmur, diastolic murmur, rubs, gallop, clicks Neurological exam: Present: alert, oriented X3 Psychiatric exam: Present: normal affect, normal mood Skin exam: Present: warm, dry, intact, normal color. Absent: rash Course Vital Signs 08/21/24 21:49 Temperature 98.2 F Pulse Rate 100 Respiratory 18 Rate Blood Pressure 101/53 O2 Sat by Pulse 95 Oximetry Medical Decision Making - Medical Decision Making Was pt. sent in by a medical professional or institution (KANE Jay, [employer] AND RAIL OPERATOR, urgent care, hospital, or fdc...) When possible be specific @ -No Did you speak to anyone other than the patient for history (EMS, parent, family, police, friend...)? What history was obtained from this source @ -No Did you review nursing and triage notes (agree or disagree)? Why? @ -I reviewed and agree with nursing and triage notes Were old charts reviewed (outside hosp., previous admission, EMS record, old EKG, old radiological studies, urgent care reports/EKG's, fdc records)? Report findings @ -Previous ER chart reviewed including CT spine which revealed mild reversal of normal cervical lordosis, most commonly seen in muscle spasm or position Differential Diagnosis (chest pain, altered mental status, abdominal pain women, abdominal pain men, vaginal bleeding, weakness, fever, dyspnea, syncope, headache, dizziness, GI bleed, back pain, seizure, CVA, palpatations, mental health, musculoskeletal)? @ -Differential Back Pain: Strain, zoster, cauda equina syndrome, epidural abscess, vertebral osteomyelitis, discitis, fracture, subluxation, disc herniation, DJD, spinal stenosis, dissection, AAA, pancreatitis, peptic ulcer disease, pyelonephritis, kidney stone, this is not meant to be an all-inclusive list. EKG interpreted by me (3pts min.). @ -None X-rays interpreted by me (1pt min.). @ -X-ray cervical spine interpreted by me reveals no acute process CT interpreted by me (1pt min.). @ -None done U/S interpreted by me (1pt. min.). @ -None done What testing was considered but not performed or refused? (CT, X-rays, U/S, labs)? Why? @ -Patient refuses blood work What meds were considered but not given or refused? Why? @ -None Did you discuss the management of the patient with other professionals (professionals i.e. KANE Jay, BUS AND RAIL OPERATOR, lab, RT, psych nurse, sr. social media & mobile manager, exercise equipment specialist, teacher, chief wellness officer, case specialist)? Give summary @ -No Was smoking cessation discussed for >3mins.? @ -No Was critical care preformed (if so, how long)? @ -No Were there social determinants of health that impacted care today? How? (Homelessness, low income, unemployed, alcoholism, drug addiction, transportation, low edu. Level, literacy, decrease access to med. care, correction, rehab)? @ -No Was there de-escalation of care discussed even if they declined (Discuss DNR or withdrawal of care, Hospice)? DNR status @ -No What co-morbidities impacted this encounter? (DM, HTN, Smoking, COPD, CAD, Cancer, CVA, ARF, Chemo, Hep., AIDS, mental health diagnosis, sleep apnea, morbid obesity)? @ -None Was patient admitted / discharged? Hospital course, mention meds given and route, prescriptions, significant lab abnormalities, going to OR and other pertinent info. @ -Discharge. 39-year-old male presenting for neck pain x 3 weeks. Patient was seen for same symptoms 3 weeks ago where he underwent CT cervical spine which revealed reversal of normal cervical lordosis. Patient states pain is persisting. Denies injury or trauma. No red flag symptoms. Vital signs within normal limits. No sign of peritonsillar abscess. Provided with ibuprofen for pain. X-ray cervical spine interpreted by me reveals no acute process. I do not identify emergent etiology causing symptoms today. Symptoms appear to be musculoskeletal in nature. Discussed importance of following up with PCP for further evaluation. Appropriate return precautions and supportive care di scussed. Patient is agreeable to plan. Case was discussed with my ED attending Dr. Everett. Undiagnosed new problem with uncertain prognosis? @ -No Drug Therapy requiring intensive monitoring for toxicity (Heparin, Nitro, Insulin, Cardizem)? @ -No Were any procedures done? @ -No Diagnosis/symptom? @ -Neck pain Acute, or Chronic, or Acute on Chronic? @ -Acute Uncomplicated (without systemic symptoms) or Complicated (systemic symptoms)? @ -Uncomplicated Side effects of treatment? @ -No Exacerbation, Progression, or Severe Exacerbation? @ -No Poses a threat to life or bodily function? How? (Chest pain, [place], [place], pneumonia, PE, COPD, DKA, ARF, appy, cholecystitis, CVA, Diverticulitis, Homicidal, Suicidal, threat to staff... and all critical care pts) @ -Not at this time Disposition Clinical Impression: Neck strain Disposition: HOME SELF-CARE Condition: Stable Instructions (If sedation given, give patient instructions): Cervical Strain (ED) Additional Instructions: Follow-up with your PCP for further evaluation. You may take ibuprofen or Tyle nol as needed for pain. Please return to the Emergency Department if symptoms worsen or any other concerns. Is patient prescribed a controlled substance at d/c from ED?: No Referrals: None,Stated [Primary Care Provider] - 1-2 days Forms: Area PCPs Time of Disposition: 00:12
[2024-08-21] MEDS: KETOROLAC 15 MG/ML 1 ML VIAL IVP STA (22:23)
[2024-08-22] MEDS: IBUPROFEN 800 MG TAB PO STA (00:21)
--- NOTE | 2024-08-22 02:15 | XR ---
EXAM: XR Cervical Spine, 2 or 3 Views CLINICAL HISTORY: ITS.REASON XR Reason: neck pain x 2 weeks TECHNIQUE: Frontal and lateral views of the cervical spine. COMPARISON: No relevant prior studies available. FINDINGS: Vertebrae: No acute fracture. Normal sagittal alignment. Disc spaces: Minimal degenerative changes. Soft tissues: Unremarkable. IMPRESSION: No acute osseous findings.
== END 2024-08-22 00:23 | disposition home or self-care (01) ==
LOC: EC 21:40
DX: S16.1XXA Strain of muscle, fascia and tendon at neck level, initial encounter (principal); Z87.891 Personal history of nicotine dependence; X58.XXXA Exposure to other specified factors, initial encounter
CPT/HCPCS: 72050; 82075; 99283

== ENCOUNTER 2024-08-26 23:23 | Emergency (ER) | payer OTHER ==
--- NOTE | 2024-08-27 00:25 | ED ---
SOB HPI - General Chief Complaint: Shortness of Breath Stated Complaint: SOB Time Seen by Provider: 08/26/24 23:42 Source: patient, RN notes reviewed Mode of arrival: ambulatory Limitations: no limitations - History of Present Illness Initial Comments: This is a 39-year-old male with history of asthma presenting for shortness of breath x 1 hour. Patient states he is having difficulty breathing and does not have an inhaler or any other medication to assist with his exacerbation. Patient also endorses dry cough. Denies fever, chills, fatigue, chest pain, dizziness, abdominal pain, N/V/D. Onset/Timin -: hour(s) Worsens With: exertion Known History Of: asthma Associated Symptoms: cough - Related Data Home Medications Medication Instructions Recorded Confirmed Acetaminophen Tab [Tylenol Tab] 1,000 mg PO Q6H PRN 09/27/22 09/27/22 Previous Rx's Medication Instructions Recorded Albuterol Sulfate [Albuterol 2 puff PO Q6H #8.5 gm 09/27/22 Sulfate Hfa] Doxycycline Hyclate 100 mg PO BID 5 Days #10 capsule 09/27/22 Albuterol Inhaler [Ventolin Hfa 2 puff INHALATION RT-QID PRN #1 12/09/22 Inhaler] each Fluticasone Propion/Salmeterol 2 puff INHALATION BID #1 each 12/09/22 [Advair Hfa 230-21 Mcg Inhaler] Montelukast [Singulair] 10 mg PO DAILY 30 Days #30 tab 12/09/22 predniSONE [Deltasone] 40 mg PO DAILY 5 Days #10 tab 12/09/22 Albuterol Inhaler [Ventolin Hfa 1 - 2 puff INHALATION Q6H PRN #1 02/10/23 Inhaler] each predniSONE 50 mg PO DAILY #5 tab 02/10/23 Albuterol Inhaler [Ventolin Hfa 1 - 2 puff INHALATION Q6H PRN #1 05/09/23 Inhaler] each predniSONE 50 mg PO DAILY #5 tab 05/09/23 Albuterol Sulfate [Albuterol 1 - 2 puff PO Q4-6H PRN #8.5 gm 10/20/23 Sulfate Hfa] predniSONE 50 mg PO DAILY 5 Days #5 tab 10/20/23 Albuterol Sulfate [Albuterol 1 puff PO Q4-6H PRN #8.5 gm 01/15/24 Sulfate Hfa] predniSONE [Deltasone] 60 mg PO DAILY 5 Days #15 tab 01/15/24 Albuterol Inhaler [Ventolin Hfa 2 puff INHALATION QID #8 gm 03/22/24 Inhaler] Azithromycin [Zithromax] 250 mg PO DAILY 4 Days #4 tab 03/22/24 predniSONE [Deltasone] 40 mg PO DAILY 4 Days #8 tab 03/22/24 Cyclobenzaprine [Flexeril] 10 mg PO TID PRN #15 tab 04/15/24 Cyclobenzaprine [Flexeril] 10 mg PO TID PRN #15 tab 08/03/24 Albuterol Inhaler [Ventolin Hfa 1 - 2 puff INHALATION Q6H PRN #1 08/27/24 Inhaler] each predniSONE 50 mg PO DAILY #5 tab 08/27/24 Allergies Allergy/AdvReac Type Severity Reaction Status Date / Time No Known Allergies Allergy Verified 08/26/24 23:45 Review of Systems ROS Statement: Those systems with pertinent positive or pertinent negative responses have been documented in the HPI. ROS Other: All systems not noted in ROS Statement are negative. Past Medical History Past Medical History: Asthma History of Any Multi-Drug Resistant Organisms: None Reported Past Surgical History: No Surgical Hx Reported Past Psychological History: Schizophrenia Smoking Status: Current every day smoker Past Alcohol Use History: Daily Past Drug Use History: Marijuana General Exam Limitations: no limitations General appearance: alert, in no apparent distress Head exam: Present: atraumatic, normocephalic, normal inspection Eye exam: Present: normal appearance, PERRL, EOMI. Absent: scleral icterus, conjunctival injection, periorbital swelling ENT exam: Present: normal exam, mucous membranes moist Neck exam: Present: normal inspection. Absent: tenderness, meningismus, lymphadenopathy Respiratory exam: Present: wheezes, decreased breath sounds, prolonged expiratory. Absent: respiratory distress, rales, rhonchi, stridor, accessory muscle use Cardiovascular Exam: Present: regular rate, normal rhythm, normal heart sounds. Absent: systolic murmur, diastolic murmur, rubs, gallop, clicks GI/Abdominal exam: Present: soft, normal bowel sounds. Absent: distended, ten derness, guarding, rebound, rigid Extremities exam: Present: normal inspection, full ROM, normal capillary refill. Absent: tenderness, pedal edema, joint swelling, calf tenderness Back exam: Present: normal inspection Neurological exam: Present: alert, oriented X3, CN II-XII intact Psychiatric exam: Present: normal affect, normal mood Skin exam: Present: warm, dry, intact, normal color. Absent: rash Course Vital Signs 08/26/24 08/27/24 08/27/24 23:41 01:10 01:15 Temperature 97.4 F L Pulse Rate 65 68 69 Respiratory 18 Rate Blood Pressure 121/81 O2 Sat by Pulse 97 Oximetry 08/27/24 03:32 Temperature 98.1 F Pulse Rate 64 Respiratory 16 Rate Blood Pressure 132/80 O2 Sat by Pulse 99 Oximetry Medical Decision Making - Medical Decision Making Was pt. sent in by a medical professional or institution ([facility], DYE FEEDER, urgent care, hospital, or longterm...) When possible be specific @ -No Did you speak to anyone other than the patient for history (EMS, parent, family, police, friend...)? What history was obtained from this source @ -No Did you review nursing and triage notes (agree or disagree)? Why? @ -I reviewed and agree with nursing and triage notes Were old charts reviewed (outside hosp., previous admission, EMS record, old EKG, old radiological studies, urgent care reports/EKG's, longterm records)? Report findings @ -No old charts were reviewed Differential Diagnosis (chest pain, altered mental status, abdominal pain women, abdominal pain men, vaginal bleeding, weakness, fever, dyspnea, syncope, headache, dizziness, GI bleed, back pain, seizure, CVA, palpatations, mental health, musculoskeletal)? @ -Differential Dyspnea: Coronary syndrome, arrhythmia, tamponade, asthma, COPD, pulmonary embolism, pneumonia, pneumothorax, pulmonary effusion, anaphylaxis, diabetic ketoacidosis, flailed chest, pulmonary contusion, diaphragmatic rupture, anemia, neuromuscular, this is not meant to be an all-inclusive list. EKG interpreted by me (3pts min.). @ -Not on X-rays interpreted by me (1pt min.). @ -None done CT interpreted by me (1pt min.). @ -None done U/S interpreted by me (1pt. min.). @ -None done What testing was considered but not performed or refused? (CT, X-rays, U/S, labs)? Why? @ -None What meds were considered but not given or refused? Why? @ -None Did you discuss the management of the patient with other professionals (professionals i.e. , PA, DYE FEEDER, lab, RT, psych nurse, older adult social work specialist, mill attendant, teacher, conservation enforcement officer, pillowcase sewer)? Give summary @ -No Was smoking cessation discussed for >3mins.? @ -No Was critical care preformed (if so, how long)? @ -No Were there social determinants of health that impacted care today? How? (Homelessness, low income, unemployed, alcoholism, drug addiction, transportation, low edu. Level, literacy, decrease access to med. care, halfway, rehab)? @ -No Was there de-escalation of care discussed even if they declined (Discuss DNR or withdrawal of care, Hospice)? DNR status @ -No What co-morbidities impacted this encounter? (DM, HTN, Smoking, COPD, CAD, Cancer, CVA, ARF, Chemo, Hep., AIDS, mental health diagnosis, sleep apnea, morbid obesity)? @ -Asthma Was patient admitted / discharged? Hospital course, mention meds given and route, prescriptions, significant lab abnormalities, going to OR and other pertinent info. @ -Cepheid test negative. Patient provided DuoNeb and p.o. prednisone with significant improvement in lung sounds including resolution of wheezing and prolonged expiration following treatment. Due to recency of start of symptoms, resolution following treatment and no concerning concurrent symptoms, patient was discharged at this time with albuterol inhaler and prednisone sent to patient's pharmacy. Advised follow-up with PCP in the next 24-[address] patient with Dr. Quezada. Undiagnosed new problem with uncertain prognosis? @ -No Drug Therapy requiring intensive monitoring for toxicity (Heparin, Nitro, Insulin, Cardizem)? @ -No Were any procedures done? @ -No Diagnosis/symptom? @ -Asthma exacerbation Acute, or Chronic, or Acute on Chronic? @ -Acute Uncomplicated (without systemic symptoms) or Complicated (systemic symptoms)? @ -Uncomplicated Side effects of treatment? @ -No Exacerbation, Progression, or Severe Exacerbation? @ -No Poses a threat to life or bodily function? How? (Chest pain, [place], [place], pneumonia, PE, COPD, DKA, ARF, appy, cholecystitis, CVA, Diverticulitis, Homicidal, Suicidal, threat to staff... and all critical care pts) @ -No - Lab Data Lab Results 08/27/24 Range/Units 01:15 Influenza Type A (PCR) Not Detected (Not Detectd) Influenza Type B (PCR) Not Detected (Not Detectd) RSV (PCR) Not Detected (Not Detectd) SARS-CoV-2 (PCR) Not Detected (Not Detectd) Disposition Clinical Impression: Asthma with acute exacerbation Disposition: HOME SELF-CARE Condition: Good Instructions (If sedation given, give patient instructions): Asthma (ED) Additional Instructions: Follow-up with PCP in the next 24-48 hours. Prescriptions: predniSONE 50 mg PO DAILY #5 tab Albuterol Inhaler [Ventolin Hfa Inhaler] 1 - 2 puff INHALATION Q6H PRN #1 each PRN Reason: Shortness Of Breath Is patient prescribed a controlled substance at d/c from ED?: No Referrals: None,Stated [Primary Care Provider] - 1-2 days Anderson Frias DO [STAFF PHYSICIAN] - 1-2 days Time of Disposition: 02:58
[2024-08-27] MEDS: predniSONE 50 MG TAB PO STA (00:58)
[2024-08-27] MEDS: IPRATROPIUM-ALBUTEROL 3 ML NEB INHALATION STA (01:09)
[2024-08-27 02:23] LABS: Influenza A Not Detected (Not Detectd); Influenza B Not Detected (Not Detectd); RSV Not Detected (Not Detectd)
[2024-08-27 03:33] VITALS: BP 132/80; PULSE 64; RESP 16; TEMP 98.1
== END 2024-08-27 03:33 | disposition home or self-care (01) ==
LOC: EC 23:23
DX: J45.901 Unspecified asthma with (acute) exacerbation (principal); F17.200 Nicotine dependence, unspecified, uncomplicated
CPT/HCPCS: 94640; 87636; 99285; J7512

== ENCOUNTER 2024-10-17 17:06 | Emergency (ER) | payer OTHER ==
[2024-10-17 17:12] VITALS: RESP 16; TEMP 98.2
--- NOTE | 2024-10-17 17:48 | XR ---
EXAMINATION TYPE: XR chest 2V DATE OF EXAM: 10/17/2024 5:27 PM COMPARISON: Chest radiographs from 03/22/2024 CLINICAL INDICATION: Male, 39 years old with history of short of breath; [facility] TECHNIQUE: XR chest 2V Frontal and lateral views of the chest. FINDINGS: Lungs/Pleura: There is no evidence of pleural effusion, focal consolidation, or pneumothorax. Pulmonary vascularity: Unremarkable. Heart/mediastinum: Cardiomediastinal silhouette is unremarkable. Musculoskeletal: No acute osseous pathology. IMPRESSION: No acute cardiopulmonary disease/process. [facility], , 10/17/2024 5:46 PM
--- NOTE | 2024-10-17 18:43 | ED ---
General Adult HPI - General Chief complaint: Upper Respiratory Infection Stated complaint: ELVIRA Time Seen by Provider: 10/17/24 18:42 Source: patient, RN notes reviewed Mode of arrival: ambulatory Limitations: no limitations - History of Present Illness Initial comments: 39-year-old male with past medical history significant of asthma presented the ER for evaluation of shortness of breath. Patient states upon waking up this morning he has been having difficulty breathing, wheezing and a mild cough. He states "some days are good some days are bad" regarding his asthma. He typically uses his albuterol inhaler with some relief but states he has been out of this currently as he does not have a PCP. He denies any dizziness, lightheadedness, chest pain, fevers or chills. He denies any calf tenderness, recent travel or history of DVT/PEs. Patient admits to smoking marijuana. He denies any headache, nausea, vomiting, abdominal pain, constipation/diarrhea, urinary complaints or peripheral edema. Denies home oxygen use, orthopnea or home nebulizer use. Patient states he has been intubated due to asthma exacerbation with pneumothorax. He states this was a couple of years ago. - Related Data Home Medications Medication Instructions Recorded Confirmed Acetaminophen Tab [Tylenol Tab] 1,000 mg PO Q6H PRN 09/27/22 09/27/22 Previous Rx's Medication Instructions Recorded Albuterol Sulfate [Albuterol 2 puff PO Q6H #8.5 gm 09/27/22 Sulfate Hfa] Doxycycline Hyclate 100 mg PO BID 5 Days #10 capsule 09/27/22 Albuterol Inhaler [Ventolin Hfa 2 puff INHALATION RT-QID PRN #1 12/09/22 Inhaler] each Fluticasone Propion/Salmeterol 2 puff INHALATION BID #1 each 12/09/22 [Advair Hfa 230-21 Mcg Inhaler] Montelukast [Singulair] 10 mg PO DAILY 30 Days #30 tab 12/09/22 predniSONE [Deltasone] 40 mg PO DAILY 5 Days #10 tab 12/09/22 Albuterol Inhaler [Ventolin Hfa 1 - 2 puff INHALATION Q6H PRN #1 02/10/23 Inhaler] each predniSONE 50 mg PO DAILY #5 tab 02/10/23 Albuterol Inhaler [Ventolin Hfa 1 - 2 puff INHALATION Q6H PRN #1 05/09/23 Inhaler] each predniSONE 50 mg PO DAILY #5 tab 05/09/23 Albuterol Sulfate [Albuterol 1 - 2 puff PO Q4-6H PRN #8.5 gm 10/20/23 Sulfate Hfa] predniSONE 50 mg PO DAILY 5 Days #5 tab 10/20/23 Albuterol Sulfate [Albuterol 1 puff PO Q4-6H PRN #8.5 gm 01/15/24 Sulfate Hfa] predniSONE [Deltasone] 60 mg PO DAILY 5 Days #15 tab 01/15/24 Albuterol Inhaler [Ventolin Hfa 2 puff INHALATION QID #8 gm 03/22/24 Inhaler] Azithromycin [Zithromax] 250 mg PO DAILY 4 Days #4 tab 03/22/24 predniSONE [Deltasone] 40 mg PO DAILY 4 Days #8 tab 03/22/24 Cyclobenzaprine [Flexeril] 10 mg PO TID PRN #15 tab 04/15/24 Cyclobenzaprine [Flexeril] 10 mg PO TID PRN #15 tab 08/03/24 Albuterol Inhaler [Ventolin Hfa 1 - 2 puff INHALATION Q6H PRN #1 08/27/24 Inhaler] each predniSONE 50 mg PO DAILY #5 tab 08/27/24 Albuterol Inhaler [Ventolin Hfa 1 - 2 puff INHALATION Q6H PRN #1 10/17/24 Inhaler] each predniSONE 50 mg PO DAILY #5 tab 10/17/24 Allergies Allergy/AdvReac Type Severity Reaction Status Date / Time No Known Allergies Allergy Verified 08/26/24 23:45 Review of Systems ROS Statement: Those systems with pertinent positive or pertinent negative responses have been documented in the HPI. ROS Other: All systems not noted in ROS Statement are negative. Past Medical History Past Medical History: Asthma History of Any Multi-Drug Resistant Organisms: None Reported Past Surgical History: No Surgical Hx Reported Past Psychological History: Schizophrenia Smoking Status: Current every day smoker Past Alcohol Use History: Daily Past Drug Use History: Marijuana General Exam - General Exam Comments Initial Comments: Visual Physical Exam Vital signs reviewed General: Well-appearing, nontoxic, no acute distress. Head: Normocephalic, atraumatic Eyes: PERRLA, EOMI ENT: Airway patent Chest: Nonlabored breathing, auditory wheezing noted Skin: No visual rash, normal skin tone Neuro: Alert and oriented 3 Musculoskeletal: No gross abnormalities Limitations: no limitations General appearance: alert, in no apparent distress ENT exam: Present: normal exam, normal oropharynx, mucous membranes moist Respiratory exam: Present: wheezes (Throughout all lung mcqueen) Cardiovascular Exam: Present: regular rate, normal rhythm, normal heart sounds. Absent: systolic murmur, diastolic murmur, rubs, gallop, clicks Extremities exam: Present: normal inspection, full ROM, normal capillary refill. Absent: tenderness, pedal edema, joint swelling, calf tenderness Neurological exam: Present: alert, oriented X3, CN II-XII intact Skin exam: Present: warm, dry, intact, normal color. Absent: rash Course Vital Signs 10/17/24 10/17/24 17:08 21:22 Temperature 98.2 F Pulse Rate 79 61 Respiratory 16 16 Rate Blood Pressure 119/75 116/85 O2 Sat by Pulse 95 96 Oximetry - Reevaluation(s) Reevaluation #1: 10/17/24 20:15 Patient refusing blood work and soft swab. Patient requesting breathing treatment. Medical Decision Making - Medical Decision Making I performed the quick note portion of this chart. Electronically signed by Oma Montano PA-C Was pt. sent in by a medical professional or institution ([facility], MEDICAID ANALYST, urgent care, hospital, or skilled nursing...) When possible be specific @ -No Did you speak to anyone other than the patient for history (EMS, parent, family, police, friend...)? What history was obtained from this source @ -No Did you review nursing and triage notes (agree or disagree)? Why? @ -I reviewed and agree with nursing and triage notes Were old charts reviewed (outside hosp., previous admission, EMS record, old EKG, old radiological studies, urgent care reports/EKG's, skilled nursing records)? Report findings @ -No old charts were reviewed Differential Diagnosis (chest pain, altered mental status, abdominal pain women, abdominal pain men, vaginal bleeding, weakness, fever, dyspnea, syncope, headache, dizziness, GI bleed, back pain, seizure, CVA, palpatations, mental health, musculoskeletal)? @ -Differential Dyspnea:Coronary syndrome, arrhythmia, tamponade, asthma, COPD, pulmonary embolism, pneumonia, pneumothorax, pulmonary effusion, anaphylaxis, diabetic ketoacidosis, flailed chest, pulmonary contusion, diaphragmatic rupture, anemia, neuromuscular, this is not meant to be an all-inclusive list. EKG interpreted by me (3pts min.). @ -Patient refused X-rays interpreted by me (1pt min.). @ -CXR interpreted me negative for focal consolidations or pneumothorax pleural CT interpreted by me (1pt min.). @ -None done U/S interpreted by me (1pt. min.). @ -None done What testing was considered but not performed or refused? (CT, X-rays, U/S, labs)? Why? @ -Patient refusing EKG, blood work and viral swabs What meds were considered but not given or refused? Why? @ -None Did you discuss the management of the patient with other professionals (professionals i.e. , PA, MEDICAID ANALYST, lab, RT, psych nurse, social media project manager, adoption services manager, teacher, bank officer, complex case manager)? Give summary @ -No Was smoking cessation discussed for >3mins.? @ -I discussed smoking cessation for greater than 3 minutes. The risk of smoking were discussed with the patient including but not limited to risks of cancer, stroke, coronary artery disease and COPD. Also discussed with patient were multiple methods of quitting smoking. Lastly we discussed the financial cost of smoking. Was critical care preformed (if so, how long)? @ -No Were there social determinants of health that impacted care today? How? (Homelessness, low income, unemployed, alcoholism, drug addiction, transportation, low edu. Level, literacy, decrease access to med. care, long term, rehab)? @ -Patient does not currently have a primary care physician. This limits patient's ability to follow-up outpatient Was there de-escalation of care discussed even if they declined (Discuss DNR or withdrawal of care, Hospice)? DNR status @ -No What co-morbidities impacted this encounter? (DM, HTN, Smoking, COPD, CAD, Cancer, CVA, ARF, Chemo, Hep., AIDS, mental health diagnosis, sleep apnea, morbid obesity)? @ -Asthma Was patient admitted / discharged? Hospital course, mention meds given and route, prescriptions, significant lab abnormalities, going to OR and other pertinent info. @ -Discharge. 39-year-old male presented to ER for evaluation of shortness of breath. Patient originally seen as a quick note. Vital signs stable. Exam remarkable for wheezing noted throughout all lung mcqueen. Patient refusing EKG, Cepheid swab or blood work. Patient requesting breathing treatment upon examination. Chest x-ray obtained and negative for acute process. Patient provided with 2 DuoNeb treatments and p.o. Decadron. Prednisone and albuterol inhaler prescribed at discharge. I advised he follow-up closely with PCP. Outpatient resources were provided at discharge including residency clinics contact information. Strict return parameters discussed. Patient discharged in stable condition. Patient verbally expressed understanding agree with care plan. Case discussed with ED attending, . Undiagnosed new problem with uncertain prognosis? @ -No Drug Therapy requiring intensive monitoring for toxicity (Heparin, Nitro, Insulin, Cardizem)? @ -No Were any procedures done? @ -No Diagnosis/symptom? @ -Asthma exacerbation Acute, or Chronic, or Acute on Chronic? @ -Acute Uncomplicated (without systemic symptoms) or Complicated (systemic symptoms)? @ -Uncomplicated Side effects of treatment? @ -No Exacerbation, Progression, or Severe Exacerbation? @ -Exacerbation Poses a threat to life or bodily function? How? (Chest pain, [place], [place], pneumonia, PE, COPD, DKA, ARF, appy, cholecystitis, CVA, Diverticulitis, Homicidal, Suicidal, threat to staff... and all critical care pts) @ -Possibly - Radiology Data Radiology results: report reviewed, image reviewed Disposition Clinical Impression: Asthma exacerbation Disposition: HOME SELF-CARE Condition: Stable Additional Instructions: Follow-up with residency clinic for reevaluation in the next 24 to 48 hours. Return to the ER for any new or worsening concerns. Prescriptions: predniSONE 50 mg PO DAILY #5 tab Albuterol Inhaler [Ventolin Hfa Inhaler] 1 - 2 puff INHALATION Q6H PRN #1 each PRN Reason: Shortness Of Breath Is patient prescribed a controlled substance at d/c from ED?: No Referrals: [facility] [NON-STAFF] - 1-2 days (Contact a primary care office to become established with a provider. ) [facility] [NON-STAFF] - 1-2 days None,Stated [Primary Care Provider] - 1-2 days Forms: [facility] Area PCPs Time of Disposition: 20:59
[2024-10-17] MEDS: IPRATROPIUM-ALBUTEROL 3 ML NEB INHALATION STA ×2 (20:11)
[2024-10-17] MEDS: DEXAMETHASONE SOD PHOSPHATE 4 MG/ML 1 ML VIAL IM STA (21:14)
[2024-10-17] MEDS: dexAMETHasone 2 MG TAB PO STA (21:18)
[2024-10-17 21:23] VITALS: BP 116/85; PULSE 61
[2024-10-17] MEDS: ALBUTEROL HFA INHALER INHALATION STA (21:57)
== END 2024-10-17 22:50 | disposition home or self-care (01) ==
LOC: EC 17:06
DX: J45.901 Unspecified asthma with (acute) exacerbation (principal); F17.200 Nicotine dependence, unspecified, uncomplicated
CPT/HCPCS: 94640 ×2; 71046; 99285; J8540